=== PATIENT | male | born 1935 | race Caucasian/White ===

== ENCOUNTER 2016-05-07 11:59 | Inpatient (IN) | payer MEDICARE ==
[~2016-05-07] VITALS: Ht 175.3 cm; Wt 68.5 kg
[2016-05-07 12:24] LABS: BASO % 1 % (0-3); EOS % 0 % (0-3); HEMATOCRIT 44.7 % (39.0-53.0); LYMPH # 1.1 x10^3/uL (1.0-4.8); LYMPH % 20 % (24-48); MEAN CORPUSCULAR HEMOGLOBIN 31 pg (25-35); MEAN CORPUSCULAR HGB CONC 34 g/dL (31-37); MEAN CORPUSCULAR VOLUME 91 fL (79-100); MONO % 18 % (0-9); NEUT % 61 % (31-73); PLATELET COUNT 175 x10^3/uL (140-400); RED CELL DISTRIBUTION WIDTH 12.8 % (11.5-14.5); WHITE BLOOD COUNT 5.6 x10^3/uL (4.0-11.0)
--- NOTE | 2016-05-07 12:35 | PHYS DOC ---
Past Medical History Past Medical History: Cancer, Diabetes-Type II, Other Additional Past Medical Histor: urinary retention, emphysema, melanoma and seranoma Past Surgical History: Cancer Surgery, Tonsillectomy Alcohol Use: None Drug Use: None Adult General HPI HPI This is an 80-year-old male who has had multiple falls in the last week. He states on Sunday he fell and hit his head and then on Sunday of this week he also fell and hit his head area and he also states last night he fell forward and hit his head. He denies any current headache. He is currently alert and oriented and answering all my questions. He states he does have history of COPD , diabetes, hypertension but denies any significant cardiac history. He does state over the last week and a half he's had a significant cough with mild shortness of breath. Patient did not come in for evaluation after any of his falls. Currently he denies any pain anywhere. He denies any nausea or vomiting. He states his last bowel movement was 2 days ago. He has history of chronic urinary retention and has a Casey catheter in place. He denies any fever or chills. Review of Systems Review of Systems Constitutional: Denies fever or chills [] Eyes: Denies change in visual acuity, redness, or eye pain [] HENT: Denies nasal congestion or sore throat [] Respiratory: Has cough, has shortness of breath [] Cardiovascular: No additional information not addressed in HPI [] GI: Denies abdominal pain, nausea, vomiting, bloody stools or diarrhea [] : Denies dysuria or hematuria [] Musculoskeletal: Denies back pain or joint pain [] Integument: Denies rash or skin lesions [] Neurologic: Denies headache, focal weakness or sensory changes [] Endocrine: Denies polyuria or polydipsia [] Current Medications Current Medications Current Medications Medications (Trade) Dose Ordered Sig/Neel Start Time Stop Time Status Last Admin Dose Admin Albuterol/ Ipratropium 3 ml 3 ml 1X ONCE 05/07/16 12:45 05/07/16 12:46 DC 05/07/16 12:42 3 ML Methylprednisolone Sodium Succinate (Solu-Medrol 125mg Vial) 125 mg 1X ONCE 05/07/16 13:45 05/07/16 13:46 UNV Sodium Chloride (Iv Sodium Chloride 0.9% 1000ml Bag) 1,000 ml @ 1,000 mls/hr 1X ONCE 05/07/16 13:00 05/07/16 13:59 05/07/16 12:45 1,000 MLS/HR Allergies Allergies Allergies Coded Allergies Type Severity Reaction Last Updated Verified aspirin Allergy Intermediate 05/07/16 Yes Physical Exam Physical Exam Constitutional: Well developed, well nourished, no acute distress, non-toxic appearance. [] HENT: Normocephalic, atraumatic, bilateral external ears normal, oropharynx moist, no oral exudates, nose normal. [] Eyes: PERRLA, EOMI, conjunctiva normal, no discharge. [] Neck: Normal range of motion, no tenderness, supple, no stridor. [] Cardiovascular:Heart rate regular rhythm, no murmur [] Lungs & Thorax: Significant crackles and wheezes heard throughout both lung paredes, no significant respiratory distress [] Abdomen: Bowel sounds normal, soft, no tenderness, no masses, no pulsatile masses. [] Skin: Warm, dry, no erythema, no rash. [] Back: No tenderness, no CVA tenderness. [] Extremities: No tenderness, no cyanosis, no clubbing, ROM intact, no edema. [] Neurologic: Alert and oriented X 3, normal motor function, normal sensory function, no focal deficits noted. [] Psychologic: Affect normal, judgement normal, mood normal. [] Current Patient Data Vital Signs Vital Signs Date Time Temp Pulse Resp B/P Pulse Ox O2 Delivery O2 Flow Rate FiO2 05/07/16 12:42 93 Room Air 05/07/16 12:08 97.9 80 20 182/82 97.9 Lab Values Laboratory Tests Test 05/07/16 12:10 White Blood Count 5.6x10^3/uL (4.0-11.0) Red Blood Count 4.90x10^6/uL (4.30-5.70) Hemoglobin 15.0g/dL (13.0-17.5) Hematocrit 44.7% (39.0-53.0) Mean Corpuscular Volume 91fL (79-100) Mean Corpuscular Hemoglobin 31pg (25-35) Mean Corpuscular Hemoglobin Concent 34g/dL (31-37) Red Cell Distribution Width 12.8% (11.5-14.5) Platelet Count 175x10^3/uL (140-400) Neutrophils (%) (Auto) 61% (31-73) Lymphocytes (%) (Auto) 20% (24-48) L Monocytes (%) (Auto) 18% (0-9) H Eosinophils (%) (Auto) 0% (0-3) Basophils (%) (Auto) 1% (0-3) Neutrophils # (Auto) 3.5x10^3uL (1.8-7.7) Lymphocytes # (Auto) 1.1x10^3/uL (1.0-4.8) Monocytes # (Auto) 1.0x10^3/uL (0.0-1.1) Eosinophils # (Auto) 0.0x10^3/uL (0.0-0.7) Basophils # (Auto) 0.0x10^3/uL (0.0-0.2) Sodium Level 137mmol/L (136-145) Potassium Level 3.4mmol/L (3.5-5.1) L Chloride Level 98mmol/L (98-107) Carbon Dioxide Level 27mmol/L (21-32) Anion Gap 12 (6-14) Blood Urea Nitrogen 16mg/dL (8-26) Creatinine 0.9mg/dL (0.7-1.3) Estimated GFR (Cockcroft-Gault) 80.8 Glucose Level 141mg/dL (70-99) H Calcium Level 9.0mg/dL (8.5-10.1) Troponin I Quantitative < 0.017ng/mL (0.000-0.055) Laboratory Tests 05/07/16 12:10 Laboratory Tests 05/07/16 12:10 EKG EKG EKG as interpreted by ne shows s sinus rhythm with a rate of 73 bpm. There are no obvious ischemic findings on this EKG. Intervals are normal. There is no ectopy. Radiology/Procedures Radiology/Procedures Portable one view of the chest as interpreted by ne does not reveal an acute cardiopulmonary abnormality. CT of the head without contrast demonstrates the following: Indication multiple falls. Trauma to the head. Noncontrast images of the head were obtained and are compared to a study 10/22/2008. The calvarium appears unremarkable. Similar to the previous exam there is extensive opacification of the paranasal sinuses compatible with pansinusitis. Mastoid air cells are normally aerated. There is no subdural or epidural hematoma. The ventricles and sulci are within normal limits given the patient's age. No mass or midline shift is seen. There is no evidence of hemorrhage. An acute intracranial finding is not seen. Course & Med Decision Making Course & Med Decision Making Pertinent Labs and Imaging studies reviewed. (See chart for details) 80-year-old male who's had approximately 3 falls in the last week impacting his head with each fall and will obtain head CT to rule out any acute traumatic bleed. His lung exam reveals that he is having significant crackles and wheezing for which I'll order a DuoNeb treatment. I will obtain full laboratory workup. Patient will ultimately be admitted to the hospital under Dr. Marie for his ongoing weakness and fall risk history. Chest x-ray was unremarkable. Laboratory workup is otherwise unremarkable. I will be admitting him to Dr. Marie for further eval urgent treatment for likely COPD exacerbation and ongoing weakness. CT of his head was negative for any tramatic findings. He was admitted without incident with breathing treatments were ordered. Dragon Disclaimer Dragon Disclaimer This electronic medical record was generated, in whole or in part, using a voice recognition dictation system. Departure Departure Impression: Primary Impression: COPD exacerbation Additional Impression: Weakness Disposition: 09 ADMITTED INPATIENT Admitting Physician: Anish Marie Condition: STABLE Problem Qualifiers ANGEL DWYER DO May 07, 2016 12:35
[2016-05-07 12:44] LABS: CREATININE 0.9 mg/dL (0.7-1.3); GFR 80.8; POTASSIUM 3.4 mmol/L (3.5-5.1)
--- NOTE | 2016-05-07 12:44 | RAD ---
Indication weakness. Protocol study. A single view of the chest was obtained. Comparison is made to an examination 09/28/2010. There are probable background changes of fibrosis. An acute finding is not seen. A significant change when compared to the prior exam is not apparent. Heart and pulmonary vessels are unremarkable. IMPRESSION: No acute finding
[2016-05-07] MEDS ORDERED: IPRATRPIUM/ALBUTEROL 0.5/2.5MG 3 ML NEBU. NEB ONE (12:45)
[2016-05-07] MEDS ORDERED: IV NORMAL SALINE 1000ML BAG 1,000 ML IV ONE (13:00)
--- NOTE | 2016-05-07 13:20 | RAD ---
Indication multiple falls. Trauma to the head. Noncontrast images of the head were obtained and are compared to a study 10/22/2008. The calvarium appears unremarkable. Similar to the previous exam there is extensive opacification of the paranasal sinuses compatible with pansinusitis. Mastoid air cells are normally aerated. There is no subdural or epidural hematoma. The ventricles and sulci are within normal limits given the patient's age. No mass or midline shift is seen. There is no evidence of hemorrhage. An acute intracranial finding is not seen. IMPRESSION: Intracranially no acute findings seen. Pansinusitis PQRS Compliance Statement: One or more of the following individualized dose reduction techniques were utilized for this examination: 1. Automated exposure control 2. Adjustment of the mA and/or kV according to patient size 3. Use of iterative reconstruction technique
[2016-05-07] MEDS ORDERED: ONDANSETRON PF 4 MG/2 ML VIAL. IV PRN (14:00)
[2016-05-07] MEDS ORDERED: ACETAMINOPHEN 325 MG TABLET. PO PRN (14:00)
[2016-05-07] MEDS ORDERED: methylPREDNISolone SOD SUCC PF 125 MG/2 ML VIAL. IV ONE (14:00)
[2016-05-07 15:48] VITALS: BP 133/80
[2016-05-07] MEDS: IPRATRPIUM/ALBUTEROL 0.5/2.5MG 3 ML NEBU. NEB SCH ×2 (15:48→21:44)
[2016-05-07] MEDS ORDERED: SIMV10TA3 PO (17:31)
[2016-05-07] MEDS ORDERED: MULT-246 PO (17:31)
[2016-05-07] MEDS ORDERED: LISI10TA2 PO (17:31)
[2016-05-07] MEDS ORDERED: OMEG1CAP6 PO (17:31)
[2016-05-07] MEDS ORDERED: FLUT100D IH (17:31)
[2016-05-07] MEDS ORDERED: METF500T4 PO (17:31)
[2016-05-07] MEDS ORDERED: IPRA4AER IH (17:31)
[2016-05-07] MEDS ORDERED: FLUT16SP NS (17:31)
[2016-05-07 19:00] VITALS: BP 121/73
[2016-05-07 22:50] VITALS: BP 146/88
[2016-05-08] VITALS (7 sets, daily range): BP systolic 137–180; BP diastolic 69–86
[2016-05-08 04:42] LABS: BASO % 1 % (0-3); EOS % 0 % (0-3); HEMATOCRIT 40.8 % (39.0-53.0); HEMOGLOBIN 13.8 g/dL (13.0-17.5); LYMPH # 0.8 x10^3/uL (1.0-4.8); LYMPH % 16 % (24-48); MEAN CORPUSCULAR HEMOGLOBIN 31 pg (25-35); MEAN CORPUSCULAR HGB CONC 34 g/dL (31-37); MEAN CORPUSCULAR VOLUME 90 fL (79-100); MONO % 16 % (0-9); NEUT % 67 % (31-73); PLATELET COUNT 172 x10^3/uL (140-400); RED BLOOD COUNT 4.53 x10^6/uL (4.30-5.70); RED CELL DISTRIBUTION WIDTH 12.5 % (11.5-14.5); WHITE BLOOD COUNT 4.9 x10^3/uL (4.0-11.0)
[2016-05-08 05:25] LABS: CALCIUM 8.8 mg/dL (8.5-10.1); CREATININE 0.7 mg/dL (0.7-1.3); POTASSIUM 3.5 mmol/L (3.5-5.1)
--- NOTE | 2016-05-08 06:26 | EKG ---
[facility] [address] [place] [address] Test Date: 2016-05-07 Test Time: 12:30:48 Pat Name: MYAH OSBORN Department: Room: 563 Gender: M Beater Boss: : 1935 Requested By: ANGEL DWYER Order Number: [id number] Reading MD: Madison Muse Measurements Intervals [place] Rate: 73 P: 49 NM: 180 QRS: -31 QRSD: 108 T: 43 QT: 370 QTc: 411 Interpretive Statements SINUS RHYTHM ABNORMAL LEFT AXIS DEVIATION LEFT ANTERIOR FASCICULAR BLOCK ABNORMAL ECG RI6.01 No previous ECG available for comparison Electronically Signed On 05-11-2016 21:34:28 [employer] DESIGN by Madison Muse
[2016-05-08] MEDS: IPRATRPIUM/ALBUTEROL 0.5/2.5MG 3 ML NEBU. NEB SCH ×3 (07:22→20:18)
[2016-05-08] MEDS: FLUTICASONE 50MCG/NASAL SPRAY 16GM BOTTLE. NS SCH (09:15)
--- NOTE | 2016-05-08 09:20 | PDOC1 ---
History and Physical Date of Admission Date of Admission DATE: 05/07/16 Identification/Chief Complaint Chief Complaint Falling Source Source: Patient History of Present Illness History of Present Illness Pt states that he fell 2 Sundays ago and hit his head on the patio. He had a cold at that time. He fell again this Sunday in his kitchen and since then had a couple more falls. He says that when he falls he can not remember what is happening, like he passes out, but as soon as he hits the ground he is coherent. Sometimes it occurs when he first stands up, but not all the time. His family tells him that he needs a walker, but he is unsure that this will help as his episodes are more like he is passing out. He says that he feels he has been slowly deteriorating for the past 2 years. He has become more forgetful. He has had a cough; today started coughing up green stuff. Past Medical History Cardiovascular: HTN, Hyperlipidemia Pulmonary: COPD GI: No pertinent hx Hepatobiliary: No pertinent hx Psych: No pertinent hx Musculoskeletal: Osteoarthritis, Other (DDD, Spondylolithesis L5-S1) Rheumatologic: No pertinent hx Infectious disease: No pertinent hx ENT: Other (Nasal polyps) Renal/: Other (Neurogenic bladder) Endocrine: Diabetes Dermatology: No pertinent hx Past Surgical History Past Surgical History Melanoma Removal Family History Family History: Cancer (Lung Cancer- father and sister), Other (Mom- seizure disorder) Social History Smoke: Quit ALCOHOL: none Drugs: None Current Problem List Problem List Problems Medical Problems: (1) COPD exacerbation Status: Acute (2) Weakness Status: Acute Problems: Current Medications Current Medications Current Medications Albuterol/ Ipratropium 3 ml 3 ml 1X ONCE NEB Last administered on 05/07/16 12 :42; Start 05/07/16 at 12:45; Stop 05/07/16 at 12:46; Status DC Sodium Chloride (Iv Sodium Chloride 0.9% 1000ml Bag) 1,000 ml @ 1,000 mls/hr 1X ONCE IV Last administered on 05/07/16 12:45; Start 05/07/16 at 13:00; Stop 05/07/16 at 13:59; Status DC Methylprednisolone Sodium Succinate (Solu-Medrol 125mg Vial) 125 mg 1X ONCE IV Last administered on 05/07/16 14:02; Start 05/07/16 at 14:00; Stop 05/07/16 at 14:01; Status DC Ondansetron HCl (Zofran) 4 mg PRN Q8HRS PRN IV NAUSEA/VOMITING; Start 05/07/16 at 14:00; Stop 05/08/16 at 13:59 Acetaminophen (Tylenol) 650 mg PRN Q4HRS PRN PO FEVER; Start 05/07/16 at 14:00 ; Stop 05/08/16 at 13:59 Albuterol/ Ipratropium (Duoneb) 3 ml RTQID NEB Last administered on 05/08/16t 07:22; Start 05/07/16 at 16:00; Stop 05/08/16 at 15:59 Active Scripts Active Reported Fish Oil 1,000 Mg Capsule ([place]-3 Fatty Acids/Fish Oil) 1 Each Capsule 1 Each PO DAILY Multi-Vitamin Daily (Multivitamin) 1 Each Tablet 1 Each PO Lisinopril 10 Mg Tablet 1 Tab PO DAILY Simvastatin 10 Mg Tablet 1 Tab PO QHS Metformin Hcl 500 Mg Tablet 1 Tab PO BID Flovent 100MCG Diskus (Fluticasone Propionate) 100 Mcg Disk.w.dev 1 Puff IH BID Combivent Respimat Inhal (Ipratropium/Albuterol Sulfate) 4 Gm Aer.w.adap 2 Inh IH QID Fluticasone Propionate Nasal Jarreau (Fluticasone Propionate) 16 Gm Jarreau.susp 2 Jarreau NS DAILY Allergies Allergies: Coded Allergies: aspirin (Verified Allergy, Intermediate, 05/07/16) ROS General: No: Chills, Night Sweats PSYCHOLOGICAL ROS: No: Anxiety, Depression Eyes: No Decreased vision, No Eye Pain HEENT: YES: Nasal congestion, No: Sore Throat ALLERGY AND IMMUNOLOGY: No: Hives, Post Nasal Drip Hematological and Lymphatic: No: Bleeding Problems, Blood Clots Respiratory: YES: Cough, Shortness of breath, Sputum Changes Cardiovascular: No Chest Pain, No Edema Gastrointestinal: No Abdominal Pain, No Constipation, No Diarrhea, No Nausea, No Vomiting Genitourinary: YES Retention, No Dysuria, No Urgency Musculoskeletal: Yes Joint Pain, Yes Muscle Pain Neurological: Yes Impaired Coord/balance, Yes Weakness, No Numbness/Tingling Skin: No Rash, No Skin Lesion Changes Physical Exam General: Alert, Oriented X3, Cooperative, No acute distress, Other (thin) HEENT: Atraumatic, PERRLA, EOMI, Mucous membr. moist/pink Lungs: Clear to auscultation, Normal air movement Heart: RRR, no thrills, no rubs, no gallops, no murmurs Abdomen: Normal bowel sounds, Soft, No tenderness, No hepatosplenomegaly Extremities: No clubbing, No cyanosis, No edema Skin: No rashes, No breakdown, No significant lesion Neuro: Normal speech, Cranial nerves 3-12 NL Psych/Mental Status: Mental status NL, Mood NL Vitals Vitals Vital Signs Date Time Temp Pulse Resp B/P Pulse Ox O2 Delivery O2 Flow Rate FiO2 05/08/16 08:00 Room Air 05/08/16 07:24 95 05/08/16 07:00 98.1 100 18 180/81 98.1 Labs Labs Laboratory Tests Test 05/07/16 12:10 05/07/16 15:58 05/07/16 20:22 05/08/16 04:30 White Blood Count 5.6x10^3/uL (4.0-11.0) 4.9x10^3/uL (4.0-11.0) Red Blood Count 4.90x10^6/uL (4.30-5.70) 4.53x10^6/uL (4.30-5.70) Hemoglobin 15.0g/dL (13.0-17.5) 13.8g/dL (13.0-17.5) Hematocrit 44.7% (39.0-53.0) 40.8% (39.0-53.0) Mean Corpuscular Volume 91fL (79-100) 90fL (79-100) Mean Corpuscular Hemoglobin 31pg (25-35) 31pg (25-35) Mean Corpuscular Hemoglobin Concent 34g/dL (31-37) 34g/dL (31-37) Red Cell Distribution Width 12.8% (11.5-14.5) 12.5% (11.5-14.5) Platelet Count 175x10^3/uL (140-400) 172x10^3/uL (140-400) Neutrophils (%) (Auto) 61% (31-73) 67% (31-73) Lymphocytes (%) (Auto) 20% (24-48) 16% (24-48) Monocytes (%) (Auto) 18% (0-9) 16% (0-9) Eosinophils (%) (Auto) 0% (0-3) 0% (0-3) Basophils (%) (Auto) 1% (0-3) 1% (0-3) Neutrophils # (Auto) 3.5x10^3uL (1.8-7.7) 3.2x10^3uL (1.8-7.7) Lymphocytes # (Auto) 1.1x10^3/uL (1.0-4.8) 0.8x10^3/uL (1.0-4.8) Monocytes # (Auto) 1.0x10^3/uL (0.0-1.1) 0.8x10^3/uL (0.0-1.1) Eosinophils # (Auto) 0.0x10^3/uL (0.0-0.7) 0.0x10^3/uL (0.0-0.7) Basophils # (Auto) 0.0x10^3/uL (0.0-0.2) 0.0x10^3/uL (0.0-0.2) Sodium Level 137mmol/L (136-145) 141mmol/L (136-145) Potassium Level 3.4mmol/L (3.5-5.1) 3.5mmol/L (3.5-5.1) Chloride Level 98mmol/L (98-107) 103mmol/L (98-107) Carbon Dioxide Level 27mmol/L (21-32) 27mmol/L (21-32) Anion Gap 12 (6-14) 11 (6-14) Blood Urea Nitrogen 16mg/dL (8-26) 11mg/dL (8-26) Creatinine 0.9mg/dL (0.7-1.3) 0.7mg/dL (0.7-1.3) Estimated GFR (Cockcroft-Gault) 80.8 108.0 Glucose Level 141mg/dL (70-99) 165mg/dL (70-99) Calcium Level 9.0mg/dL (8.5-10.1) 8.8mg/dL (8.5-10.1) Troponin I Quantitative < 0.017ng/mL (0.000-0.055) Glucose (Fingerstick) 167mg/dL (70-99) 247mg/dL (70-99) Test 05/08/16 07:41 Glucose (Fingerstick) 136mg/dL (70-99) Laboratory Tests Test 05/07/16 12:10 05/07/16 15:58 05/07/16 20:22 05/08/16 04:30 White Blood Count 5.6x10^3/uL (4.0-11.0) 4.9x10^3/uL (4.0-11.0) Red Blood Count 4.90x10^6/uL (4.30-5.70) 4.53x10^6/uL (4.30-5.70) Hemoglobin 15.0g/dL (13.0-17.5) 13.8g/dL (13.0-17.5) Hematocrit 44.7% (39.0-53.0) 40.8% (39.0-53.0) Mean Corpuscular Volume 91fL (79-100) 90fL (79-100) Mean Corpuscular Hemoglobin 31pg (25-35) 31pg (25-35) Mean Corpuscular Hemoglobin Concent 34g/dL (31-37) 34g/dL (31-37) Red Cell Distribution Width 12.8% (11.5-14.5) 12.5% (11.5-14.5) Platelet Count 175x10^3/uL (140-400) 172x10^3/uL (140-400) Neutrophils (%) (Auto) 61% (31-73) 67% (31-73) Lymphocytes (%) (Auto) 20% (24-48) 16% (24-48) Monocytes (%) (Auto) 18% (0-9) 16% (0-9) Eosinophils (%) (Auto) 0% (0-3) 0% (0-3) Basophils (%) (Auto) 1% (0-3) 1% (0-3) Neutrophils # (Auto) 3.5x10^3uL (1.8-7.7) 3.2x10^3uL (1.8-7.7) Lymphocytes # (Auto) 1.1x10^3/uL (1.0-4.8) 0.8x10^3/uL (1.0-4.8) Monocytes # (Auto) 1.0x10^3/uL (0.0-1.1) 0.8x10^3/uL (0.0-1.1) Eosinophils # (Auto) 0.0x10^3/uL (0.0-0.7) 0.0x10^3/uL (0.0-0.7) Basophils # (Auto) 0.0x10^3/uL (0.0-0.2) 0.0x10^3/uL (0.0-0.2) Sodium Level 137mmol/L (136-145) 141mmol/L (136-145) Potassium Level 3.4mmol/L (3.5-5.1) 3.5mmol/L (3.5-5.1) Chloride Level 98mmol/L (98-107) 103mmol/L (98-107) Carbon Dioxide Level 27mmol/L (21-32) 27mmol/L (21-32) Anion Gap 12 (6-14) 11 (6-14) Blood Urea Nitrogen 16mg/dL (8-26) 11mg/dL (8-26) Creatinine 0.9mg/dL (0.7-1.3) 0.7mg/dL (0.7-1.3) Estimated GFR (Cockcroft-Gault) 80.8 108.0 Glucose Level 141mg/dL (70-99) 165mg/dL (70-99) Calcium Level 9.0mg/dL (8.5-10.1) 8.8mg/dL (8.5-10.1) Troponin I Quantitative < 0.017ng/mL (0.000-0.055) Glucose (Fingerstick) 167mg/dL (70-99) 247mg/dL (70-99) Test 05/08/16 07:41 Glucose (Fingerstick) 136mg/dL (70-99) VTE Prophylaxis Ordered VTE Prophylaxis Devices: Yes VTE Pharmacological Prophylaxi: No Assessment/Plan Assessment/Plan Pt is a 80yo CM admitted for recurrent falls and COPD Exacerbation 1)COPD Exacerbation- will treat with antibiotics and low dose steroids. 2)Recurrent falls/syncopal episodes- Cardiology has been consulted. Some of his syncopal episodes sound vasovagal but some sound unprovoked. PT/OT has been consulted 3)HTN- uncontrolled this morning, will resume pt's Lisinopril 40mg 4)HLD- pt continued on Simvastatin 10mg QHS 5)DM2- HbA1C pending. Pt continued on Metformin 500mg BID SONAL WHITE MD May 08, 2016 09:20
[2016-05-08] MEDS: METFORMIN 500 MG TABLET. PO SCH ×2 (09:43→16:42)
[2016-05-08] MEDS: LISINOPRIL 40 MG TABLET. PO SCH (09:43)
[2016-05-08] MEDS: LEVOFLOXACIN 500 MG TABLET PO SCH (09:44)
[2016-05-08] MEDS: SIMVASTATIN 10 MG TABLET PO SCH ×2 (09:44→09:51)
[2016-05-08] MEDS ORDERED: PREDNISONE 10 MG TABLET PO SCH (10:00)
[2016-05-08] MEDS: BUDESONIDE 0.5 MG/2 ML NEBU NEB SCH ×2 (11:15→20:18)
--- NOTE | 2016-05-08 12:50 | PDOC2 ---
CARDIAC CONSULT DATE OF CONSULT Date of Consult DATE: 05/08/16 TIME: 12:16 REASON FOR CONSULT Reason for Consult: syncope REFERRING PHYSICIAN Referring Physician: Dr. Ry Frias SOURCE Source: Chart review, Patient HISTORY OF PRESENT ILLNESS HISTORY OF PRESENT ILLNESS 80 year old male with a history of falls recently. States he" fades away momentarily." Story varies somewhat from provider to provider. Now states all falls occurred 2 weeks ago and he has not fallen any in the last week. Reports falling in the door once and falling in the kitchen. Denies associated dizziness, lightheadedness, diplopia, chest pain, or palpitations. Does complain of dyspnea which has been present since 1998 when he was diagnosed with emphysema after falling on a hill mowing grass, as well as a cough productive of green sputum. 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 Hypokalemic on presentation @ 3.4. Troponin levels not consistent with AMI and no acute changes in EKG. Reason for Visit: ? of syncope PAST MEDICAL HISTORY Cardiovascular: HTN, Hyperlipidemia Pulmonary: COPD (with emphysema) CENTRAL NERVOUS SYSTEM: Other (none) GI: Other (bowel obstruction) Heme/Onc: Cancer (melanoma) Hepatobiliary: No pertinent hx Psych: No pertinent hx Musculoskeletal: Osteoarthritis (with DDD) Rheumatologic: No pertinent hx Infectious disease: No pertinent hx ENT: Allergic Rhinitis, Other (nasal polyps) Renal/: Other (urinary retention with self-catheterization ) Endocrine: Diabetes (type II, poorly controlled) Dermatology: Melanoma PAST SURGICAL HISTORY Past Surgical History: Tonsillectomy, Other (excision of melanoma) FAMILY HISTORY Family History negative for CAD Family History: Cancer SOCIAL HISTORY Smoke: Quit (1980) ALCOHOL: none Drugs: None Lives: with Family CURRENT MEDICATIONS CURRENT MEDICATIONS Current Medications Medications (Trade) Dose Ordered Sig/Neel Route PRN Reason Start Time Stop Time Status Last Admin Dose Admin Albuterol/ Ipratropium 3 ml 3 ml 1X ONCE NEB 05/07/16 12:45 05/07/16 12:46 DC 05/07/16 12:42 Sodium Chloride (Iv Sodium Chloride 0.9% 1000ml Bag) 1,000 ml @ 1,000 mls/hr 1X ONCE IV 05/07/16 13:00 05/07/16 13:59 DC 05/07/16 12:45 Methylprednisolone Sodium Succinate (Solu-Medrol 125mg Vial) 125 mg 1X ONCE IV 05/07/16 14:00 05/07/16 14:01 DC 05/07/16 14:02 Albuterol/ Ipratropium (Duoneb) 3 ml RTQID [facility] 05/07/16 16:00 05/08/16 15:59 05/08/16 11:15 Levofloxacin (Levaquin) 500 mg DAILY06 PO 05/08/16 10:00 05/08/16 09:44 Prednisone (Prednisone) 40 mg DAILY PO 05/08/16 10:00 05/08/16 09:43 Lisinopril (Prinivil) 40 mg DAILY PO 05/08/16 10:00 05/08/16 09:43 Metformin HCl (Glucophage) 500 mg BIDWMEALS PO 05/08/16 10:00 05/08/16 09:43 Simvastatin (Zocor) 10 mg QHS PO 05/08/16 09:15 05/08/16 09:44 Budesonide (Pulmicort) 0.5 mg RTBID [facility] 05/08/16 10:00 05/08/16 11:15 ALLERGIES ALLERGIES: Coded Allergies: aspirin (Verified Allergy, Intermediate, 05/07/16) ROS General: YES: Fatigue, Malaise PSYCHOLOGICAL ROS: No: Anxiety, Behavioral Disorder, Concentration difficultie , Decreased libido, Depression, Disorientation, Hallucinations, Hostility, Irritablity, Memory difficulties, Mood Swings, Obsessive thoughts, Other, Physical abuse, Sexual abuse, Sleep disturbances, Suicidal ideation Eyes: No Blurry vision, No Decreased vision, No Double vision, No Dry eyes, No Excessive tearing, No Eye Pain, No Itchy Eyes, No Loss of vision, No Other, No Photophobia, No Scotomata, No Uses contacts, No Uses glasses HEENT: No: Epistaxis, Heacaches, Hearing change, Nasal congestion, Nasal discharge, Oral lesions, Other, Sinus pain, Sneezing, Snoring, Sore Throat, Tinnitus, Vertigo, Visual Changes, Vocal changes ALLERGY AND IMMUNOLOGY: YES: Other (history of angioedema - etiology unknown), No: Hives, Insect Bite Sensitivity, Itchy/Watery Eyes, Nasal Congestion, Post Nasal Drip, Seasonal Allergies Hematological and Lymphatic: No: Bleeding Problems, Blood Clots, Blood Transfusions, Brusing, Night Sweats, Other, Pallor, Swollen Lymph Nodes ENDOCRINE: No: Breast Changes, Galactorrhea, Hair Pattern Changes, Hot Flashes , Malaise/lethargy, Mood Swings, Other, Palpitations, Polydipsia/polyuria, Skin Changes, Temperature Intolerance, Unexpected Weight Changes Respiratory: YES: Cough, SOB with excertion, Shortness of breath, Sputum Changes Cardiovascular: No Chest Pain, No Edema, No Lt Headedness, No Orthopnea, No Other, No Palpitations, No Paroxysmal Noc. Dyspnea Gastrointestinal: No Abdominal Pain, No Constipation, No Diarrhea, No Hematochezia, No Melena, No Nausea, No Other, No Vomiting Genitourinary: YES Hematuria PHYSICAL EXAM General: Alert, Oriented X3, Cooperative, No acute distress HEENT: Atraumatic, PERRLA Lungs: Other (coarse rhonchii posteriorly; scattered exp wheezing; no crackles) Heart: Regular rate, Normal S1, Normal S2, No murmurs, Other (no carotid bruits ) Abdomen: Normal bowel sounds, Soft, No tenderness Extremities: No edema, Normal pulses Skin: No rashes Neuro: Normal speech Psych/Mental Status: Mental status NL, Mood NL MUSCULOSKELETAL: Osteoarthritic changes both hands VITALS VITALS Vital Signs Date Time Temp Pulse Resp B/P Pulse Ox O2 Delivery O2 Flow Rate FiO2 05/08/16 11:18 Room Air 05/08/16 09:43 100 180/81 05/08/16 07:24 95 05/08/16 07:00 98.1 18 98.1 LABS Lab: Laboratory Tests Test 05/07/16 15:58 05/07/16 20:22 05/08/16 04:30 05/08/16 07:41 Glucose (Fingerstick) 167mg/dL (70-99) 247mg/dL (70-99) 136mg/dL (70-99) White Blood Count 4.9x10^3/uL (4.0-11.0) Red Blood Count 4.53x10^6/uL (4.30-5.70) Hemoglobin 13.8g/dL (13.0-17.5) Hematocrit 40.8% (39.0-53.0) Mean Corpuscular Volume 90fL (79-100) Mean Corpuscular Hemoglobin 31pg (25-35) Mean Corpuscular Hemoglobin Concent 34g/dL (31-37) Red Cell Distribution Width 12.5% (11.5-14.5) Platelet Count 172x10^3/uL (140-400) Neutrophils (%) (Auto) 67% (31-73) Lymphocytes (%) (Auto) 16% (24-48) Monocytes (%) (Auto) 16% (0-9) Eosinophils (%) (Auto) 0% (0-3) Basophils (%) (Auto) 1% (0-3) Neutrophils # (Auto) 3.2x10^3uL (1.8-7.7) Lymphocytes # (Auto) 0.8x10^3/uL (1.0-4.8) Monocytes # (Auto) 0.8x10^3/uL (0.0-1.1) Eosinophils # (Auto) 0.0x10^3/uL (0.0-0.7) Basophils # (Auto) 0.0x10^3/uL (0.0-0.2) Sodium Level 141mmol/L (136-145) Potassium Level 3.5mmol/L (3.5-5.1) Chloride Level 103mmol/L (98-107) Carbon Dioxide Level 27mmol/L (21-32) Anion Gap 11 (6-14) Blood Urea Nitrogen 11mg/dL (8-26) Creatinine 0.7mg/dL (0.7-1.3) Estimated GFR (Cockcroft-Gault) 108.0 Glucose Level 165mg/dL (70-99) Calcium Level 8.8mg/dL (8.5-10.1) Magnesium Level 2.0mg/dL (1.8-2.4) Thyroid Stimulating Hormone (TSH) 0.381uIU/mL (0.358-3.74) Test 05/08/16 10:38 Glucose (Fingerstick) 169mg/dL (70-99) IMAGES IMAGES 05/07/2016: CXR: There are probable background changes of fibrosis. An acute finding is not seen. A significant change when compared to the prior exam is not apparent. Heart and pulmonary vessels are unremarkable. IMPRESSION: No acute finding CT head: The calvarium appears unremarkable. Similar to the previous exam there is extensive opacification of the paranasal sinuses compatible with pansinusitis. Mastoid air cells are normally aerated. There is no subdural or epidural hematoma. The ventricles and sulci are within normal limits given the patient's age. No mass or midline shift is seen. There is no evidence of hemorrhage. An acute intracranial finding is not seen. IMPRESSION: Intracranially no acute findings seen. Pansinusitis EKG EKG no acute changes ASSESSMENT/PLAN ASSESSMENT/PLAN 1. suspected syncope no acute changes in EKG and troponin levels not consistent with AMI place on telemetry to evaluate for dysrhythmias & consider event monitor @ discharge if further evaluation needed check orthostatics & TSH strict I & O echo to assess for valvular heart disease and evaluate LV function 2. AECOPD per primary service 3. HTN ACEI resumed earlier today avoid BB with COPD and until it is determined he does not have have underlying bradycardia 4. HLD check FLP 5. DM, II, hyperglycemia per primary service 6. urinary retention self catheterization 7. melanoma history 8. hypokalemia improved Problems: JUSTIN BARGER APRN May 08, 2016 12:50
--- NOTE | 2016-05-08 15:21 | CARD ---
APPROVED REPORT EXAM: Two-dimensional and M-mode echocardiogram with Doppler and color Doppler. Other Information Quality : GoodHR: 114bpm Rhythm : Tachycardia INDICATION Pericardial Effusion Hypertension/HCVD Falls 2D DIMENSIONS Left Atrium(2D)3.7 (1.6-4.0cm)IVSd1.0 (0.7-1.1cm) Aortic Root(2D)3.2 (2.0-3.7cm)LVDd4.4 (3.9-5.9cm) LVOT Diameter2.3 (1.8-2.4cm)PWd0.9 (0.7-1.1cm) LVDs2.6 (2.5-4.0cm)FS (%) 37.6 % SV54.9 mlLVEF(%)68.1 (>50%) Aortic Valve AoV Peak Kentrell.151.6cm/sAoV VTI26.8cm AO Peak GR.9.2mmHgLVOT VTI 23.24cm AO Mean GR.5mmHg Mitral Valve MV E Peak Gr.14mmHgMV E Mean Gr.6mmHg TDI Lateral E' P. V11.05cm/sMedial E' P. V7.20cm/s LEFT VENTRICLE The left ventricle is normal size. There is normal left ventricular wall thickness. The left ventricu lar systolic function is normal and the ejection fraction is within normal range. The Ejection Fracti on is 60-65%. There is normal LV segmental wall motion. Transmitral Doppler flow pattern is Grade I-a bnormal relaxation pattern. RIGHT VENTRICLE The right ventricle is normal size. There is normal right ventricular wall thickness. The right ventr icular systolic function is normal. ATRIA The left atrium size is normal. The right atrium size is normal. The interatrial septum is intact wit h no evidence for an atrial septal defect or patent foramen ovale as noted on 2-D or Doppler imaging. AORTIC VALVE The aortic valve is mildly sclerotic. Doppler and Color Flow revealed no significant aortic regurgita tion. There is no significant aortic valvular stenosis. MITRAL VALVE Mitral annular calcification is mild. The mitral valve leaflets are thickened. There is no evidence o f mitral valve prolapse. There is no mitral valve stenosis. Doppler and Color Flow revealed no mitral valve regurgitation noted. TRICUSPID VALVE The tricuspid valve is normal in structure and function. Doppler and Color Flow revealed trace tricus pid valve regurgitation. PULMONIC VALVE The pulmonic valve is not well visualized. Doppler and Color Flow revealed no pulmonic valvular regur gitation. GREAT VESSELS The aortic root is normal in size. The ascending aorta is normal in size. The pulmonary artery is nor mal. The IVC is normal in size and collapses >50% with inspiration. PERICARDIAL EFFUSION There is no evidence of significant pericardial effusion. Critical Notification Critical Value: No <Conclusion> The left ventricle is normal size. The left ventricular systolic function is normal and the ejection fraction is within normal range. The Ejection Fraction is 60-65%. There is normal left ventricular wall thickness. There is no significant aortic valvular stenosis. Doppler and Color Flow revealed no significant aortic regurgitation. Doppler and Color Flow revealed no mitral valve regurgitation noted. Doppler and Color Flow revealed trace tricuspid valve regurgitation.
[2016-05-08] MEDS ORDERED: METFORMIN 500 MG TABLET. PO SCH (21:00)
[2016-05-08] MEDS ORDERED: NON FORMULARY ITEM (Fluticasone Propionate (Flovent 100MCG Diskus) 1 PUFF) IH SCH (21:00)
[2016-05-08] MEDS ORDERED: SIMVASTATIN 10 MG TABLET PO SCH (21:00)
[2016-05-09 03:40] VITALS: BP 151/80
[2016-05-09 05:57] LABS: CHOLESTEROL/HDL RATIO 2.5
[2016-05-09] MEDS: LEVOFLOXACIN 500 MG TABLET PO SCH (06:09)
[2016-05-09] MEDS: BUDESONIDE 0.5 MG/2 ML NEBU NEB SCH ×2 (06:55→18:10)
[2016-05-09] MEDS: IPRATRPIUM/ALBUTEROL 0.5/2.5MG 3 ML NEBU. NEB SCH ×4 (06:55→18:10)
[2016-05-09 07:15] VITALS: BP 104/68
--- NOTE | 2016-05-09 07:57 | PDOC ---
SUBJECTIVE Subjective Pt states that he feels more short of air today than he did yesterday. Cough is keeping him up at night. Still having productive cough since admission; admits that he may be in the beginning stages of dementia. OBJECTIVE Vital Signs Vital Signs Date Time Temp Pulse Resp B/P Pulse Ox O2 Delivery O2 Flow Rate FiO2 05/09/16 06:56 97 Room Air 05/09/16 03:40 97.7 80 20 151/80 92 Room Air 97.7 05/08/16 23:39 97.5 96 20 151/69 92 Room Air 97.5 05/08/16 20:25 96 Room Air 05/08/16 20:22 96 Room Air 05/08/16 20:00 Room Air 05/08/16 19:00 97.6 97 18 169/76 95 Room Air 97.6 05/08/16 16:55 Room Air 05/08/16 15:09 103 18 143/78 93 Room Air 05/08/16 15:07 107 18 137/82 93 Room Air 05/08/16 15:06 98.1 108 18 158/86 93 Room Air 98.1 05/08/16 11:18 Room Air 05/08/16 11:17 Room Air 05/08/16 11:00 98.1 78 18 145/75 94 Room Air 98.1 05/08/16 09:43 100 180/81 05/08/16 08:00 Room Air I & O Intake and Output 05/09/16 07:00 Intake Total 2800 ml Output Total 2615 ml Balance 185 ml Intake Oral 2800 ml Output Urine Total 2615 ml # Voids 1 # Bowel Movements 1 PHYSICAL EXAM Physical Exam General: Alert, Oriented X3, Cooperative, No acute distress, Other (thin) HEENT: Atraumatic, PERRLA, EOMI, Mucous membr. moist/pink Lungs: Clear to auscultation, Normal air movement Heart: RRR, no thrills, no rubs, no gallops, no murmurs Abdomen: Normal bowel sounds, Soft, No tenderness, No hepatosplenomegaly Extremities: No clubbing, No cyanosis, No edema Skin: No rashes, No breakdown, No significant lesion Neuro: Normal speech, Cranial nerves 3-12 NL Psych/Mental Status: Mental status NL, Mood NL ASSESSMENT/PLAN Assessment/Plan Pt is a 80yo CM admitted for recurrent falls and COPD Exacerbation 1)COPD Exacerbation- will treat with antibiotics and low dose steroids. 2)Recurrent falls/syncopal episodes- Cardiology has been consulted. Some of his syncopal episodes sound vasovagal but some sound unprovoked. PT/OT has been consulted, recommending discharge to home... possibly SNU in the future if falls continue. ECHO WNL 3)HTN- moderately controlled this morning, pt on Lisinopril 40mg 4)HLD- pt continued on Simvastatin 10mg QHS 5)DM2- well controlled with HbA1C of 6.5 this admission. Pt continued on Metformin 500mg BID; BS currently elevated 2/2 steroids, will start SSI. 6)CHF- diastolic, compensated. 7)Urinary Retention- pt self catheterizes 8)Dementia Problems: COMMENT Lab Laboratory Tests Test 05/08/16 10:38 05/08/16 16:30 05/08/16 21:33 05/09/16 03:53 Glucose (Fingerstick) 169mg/dL (70-99) 162mg/dL (70-99) 211mg/dL (70-99) Triglycerides Level 48mg/dL (0-150) Cholesterol Level 144mg/dL (0-200) LDL Cholesterol, Calculated 76mg/dL (0-100) VLDL Cholesterol, Calculated 10mg/dL (0-40) HDL Cholesterol 58mg/dL (40-60) Cholesterol/HDL Ratio 2.5 SONAL WHITE MD May 09, 2016 07:57
[2016-05-09] MEDS: INSULIN ASPART 300 UNITS/3 ML INSULN.PEN SQ SCH ×3 (08:00→17:00)
[2016-05-09] MEDS ORDERED: DEXTROSE 50% 25 GM / 50ML DISP.SYRIN. IV PRN (08:00)
[2016-05-09] MEDS ORDERED: LISINOPRIL 10 MG TABLET PO SCH (09:00)
[2016-05-09] MEDS ORDERED: FLUTICASONE 50MCG/NASAL SPRAY 16GM BOTTLE. NS SCH (09:00)
[2016-05-09] MEDS: FLUTICASONE 50MCG/NASAL SPRAY 16GM BOTTLE. NS SCH (09:00)
[2016-05-09] MEDS: LISINOPRIL 40 MG TABLET. PO SCH (09:23)
[2016-05-09] MEDS: PREDNISONE 20 MG TABLET PO SCH (09:23)
[2016-05-09] MEDS: METFORMIN 500 MG TABLET. PO SCH ×2 (09:24→17:42)
[2016-05-09 11:00] VITALS: BP 134/76
--- NOTE | 2016-05-09 11:15 | PDOC ---
CARDIO Progress Notes Date and Time Date of Service 05/09/2016 Time of Evaluation 1110 Subjective Subjective: No Chest Pain, No Palpitations, No Dizziness, Other (dyspnea and cough last night; no further syncope) Vitals Vitals Vital Signs Date Time Temp Pulse Resp B/P Pulse Ox O2 Delivery O2 Flow Rate FiO2 05/09/16 10:46 Room Air 05/09/16 09:23 81 104/68 05/09/16 07:15 98.6 18 95 98.6 Weight Weight [ ] Input and Output Intake and Output Intake and Output 05/09/16 07:00 Intake Total 2800 ml Output Total 2615 ml Balance 185 ml Intake Oral 2800 ml Output Urine Total 2615 ml # Voids 1 # Bowel Movements 1 Laboratory Labs Laboratory Tests Test 05/08/16 16:30 05/08/16 21:33 05/09/16 03:53 Glucose (Fingerstick) 162mg/dL (70-99) 211mg/dL (70-99) Triglycerides Level 48mg/dL (0-150) Cholesterol Level 144mg/dL (0-200) LDL Cholesterol, Calculated 76mg/dL (0-100) VLDL Cholesterol, Calculated 10mg/dL (0-40) HDL Cholesterol 58mg/dL (40-60) Cholesterol/HDL Ratio 2.5 Physical Exam HEENT: Neck Supple W Full Motion Chest: Symmetric LUNGS: Other (exp wheezing posteriorly) Heart: RRR, no thrills, no rubs, no gallops, no murmurs Abdomen: Soft N/T Extremities: No Edema Neurology: alert, follow commands Diagnostic Tests Echocardiogram: Normal LVEF (60-65%), Normal Valves, No pericardial Effusion Assessment Assessment 1. suspected syncope echo with preserved LV function and no significant valvular disease not orthostatic TSH normal no niya or atrial dysrhythmias on tele; intermittently tachycardic and suspect related to COPD ? deconditioning - reports sitting in a chair for the last 2 years with minimal activity continue tele - likely event monitor at discharge ? SNF for PT/OT 2. AECOPD per primary service 3. HTN ACEI started 05/08 consider addition of amlodipine or felodipine for improved control would avoid BB given COPD 4. HLD LDLs = 76 on statin therapy no changes recommended JUSTIN BARGER APRN May 09, 2016 11:15
[2016-05-09 15:18] VITALS: BP 154/77
[2016-05-09] MEDS ORDERED: MONT10TA9 PO (17:43)
[2016-05-09] MEDS: SIMVASTATIN 10 MG TABLET PO SCH (20:30)
[2016-05-09 20:51] VITALS: BP 146/78
[2016-05-09] MEDS ORDERED: MONTELUKAST SODIUM 10 MG TABLET. PO SCH (21:00)
[2016-05-09 23:00] VITALS: BP 126/79
[2016-05-10 03:00] VITALS: BP 135/74
[2016-05-10] MEDS: IPRATRPIUM/ALBUTEROL 0.5/2.5MG 3 ML NEBU. NEB SCH ×3 (07:18→15:24)
[2016-05-10] MEDS: BUDESONIDE 0.5 MG/2 ML NEBU NEB SCH (07:19)
[2016-05-10 07:20] VITALS: BP 149/78
[2016-05-10] MEDS: LEVOFLOXACIN 500 MG TABLET PO SCH (07:36)
[2016-05-10] MEDS: INSULIN ASPART 300 UNITS/3 ML INSULN.PEN SQ SCH ×2 (08:00→12:00)
[2016-05-10] MEDS: FLUTICASONE 50MCG/NASAL SPRAY 16GM BOTTLE. NS SCH (08:19)
[2016-05-10] MEDS: METFORMIN 500 MG TABLET. PO SCH (08:19)
[2016-05-10] MEDS: PREDNISONE 20 MG TABLET PO SCH (08:19)
[2016-05-10] MEDS: LISINOPRIL 40 MG TABLET. PO SCH (08:20)
[2016-05-10 10:49] VITALS: BP 147/82
--- NOTE | 2016-05-10 12:10 | PDOC ---
CARDIO Progress Notes Date and Time Date of Service 05/10/2016 Time of Evaluation 1207 Subjective Subjective: No Chest Pain, No Palpitations, No Dizziness, Other (dyspnea improved; feeling better) Vitals Vitals Vital Signs Date Time Temp Pulse Resp B/P Pulse Ox O2 Delivery O2 Flow Rate FiO2 05/10/16 11:13 Room Air 05/10/16 10:49 98.0 75 18 147/82 92 98.0 Weight Weight [ ] Input and Output Intake and Output Intake and Output 05/10/16 07:00 Intake Total 2720 ml Output Total 3200 ml Balance -480 ml Intake Oral 2720 ml Output Urine Total 3200 ml # Voids 1 Laboratory Labs Laboratory Tests Test 05/09/16 16:52 05/09/16 21:19 05/10/16 07:26 05/10/16 11:42 Glucose (Fingerstick) 218mg/dL (70-99) 244mg/dL (70-99) 129mg/dL (70-99) 170mg/dL (70-99) Physical Exam HEENT: Neck Supple W Full Motion Chest: Symmetric LUNGS: Other (exp wheezing posteriorly) Heart: S1S2, RRR, no thrills, no rubs, no gallops, no murmurs, other (tele: SR/ ST) Abdomen: Soft N/T Extremities: No Edema Neurology: alert, follow commands Diagnostic Tests Echocardiogram: Normal LVEF (60-65%), Normal Valves, No pericardial Effusion Assessment Assessment 1. suspected syncope echo with preserved LV function and no significant valvular disease no further syncope no dysrhythmias on tele - mild tachycardia likely due to AECOPD will schedule for event monitor/SEEQ and then follow up in office 2. AECOPD improving symptoms per primary service 3. HTN ACEI started 05/08 mildly elevated intermittently consider addition of amlodipine or felodipine for improved control would avoid BB given COPD/wheezing actively 4. HLD LDLs = 76 on statin therapy no changes recommended JUSTIN BARGER APRN May 10, 2016 12:10
[2016-05-10] MEDS ORDERED: LISI40TA PO (12:17)
[2016-05-10] MEDS ORDERED: PRED20TA PO (12:17)
[2016-05-10] MEDS ORDERED: LEVO500T38 PO (12:17)
--- NOTE | 2016-05-10 12:26 | PDOC3 ---
Discharge Summary* Date of Admission: May 07, 2016 Date of Discharge: May 10, 2016 Admitting Diagnosis Problems Medical Problems: (1) COPD exacerbation Status: Acute (2) Syncope Status: Acute (3) Weakness Status: Acute Final Diagnosis Recurrent falls, syncopal episodes, COPD Exacerbation, HTN, HLD, DM2, CHF- diastolic,compensated, Urinary retention chronic-pt self caths, Dementia CONSULTS Cardiology Procedures CXR- no acute processes. Possible fibrosis CT Head- pansinusitis ECHO- LVEF 60-65%, Grade 1 Diastolic Dysfunction Brief Hospital Course DISCHARGE PHYSICAL EXAM General: Alert, Oriented X3, Cooperative, No acute distress, Other (thin) HEENT: Atraumatic, PERRLA, EOMI, Mucous membr. moist/pink Lungs: Clear to auscultation, Normal air movement Heart: RRR, no thrills, no rubs, no gallops, no murmurs Abdomen: Normal bowel sounds, Soft, No tenderness, No hepatosplenomegaly Extremities: No clubbing, No cyanosis, No edema Skin: No rashes, No breakdown, No significant lesion Neuro: Normal speech, Cranial nerves 3-12 NL Psych/Mental Status: Mental status NL, Mood NL Pt is a 80yo CM admitted for recurrent falls and COPD Exacerbation 1)COPD Exacerbation- treated with Levaquin 500mg qday and Prednisone. Pt improving 2)Recurrent falls/syncopal episodes- Cardiology was following, no cardiac events during hospitalization. Pt will be discharged outpatient cardiac monitoring. Some of his syncopal episodes sound vasovagal; walker ordered and discussed taking his time to stand and make sure his head is clear before starting to walk. Home PT/OT. but some sound unprovoked. ECHO WNL 3)HTN- moderately controlled, pt continued on Lisinopril 40mg 4)HLD- pt continued on Simvastatin 10mg QHS 5)DM2- well controlled with HbA1C of 6.5 this admission. Pt continued on Metformin 500mg BID; BS's elevated 2/2 steroids, was receiving some SSI 6)CHF- diastolic, compensated. 7)Urinary Retention- pt self catheterizes 8)Dementia Disposition/Orders: D/C to Home w/ HH CONDITION AT DISCHARGE: Improved, Stable Diet: 2 gr sodium, Consistent Carbohydrate Scheduled Fluticasone Propionate (Fluticasone Propionate Nasal [place]) 2 SPRAY NS DAILY ( Reported) Fluticasone Propionate (Flovent 100MCG Diskus) 1 PUFF IH BID (Reported) Ipratropium/Albuterol Sulfate (Combivent Respimat Inhal) 2 INH IH QID (Reported ) Levofloxacin (Levaquin) 500 MG PO DAILY06 Lisinopril (Lisinopril) 40 MG PO DAILY Metformin Hcl (Metformin Hcl) 1 TAB PO BID (Reported) Montelukast Sodium (Montelukast Sodium Tablet) 10 MG PO HS (Reported) [place]-3 Fatty Acids/Fish Oil (Fish Oil 1,000 Mg Capsule) 1 EACH PO DAILY ( Reported) Prednisone (Prednisone) 60 MG PO DAILY Simvastatin (Simvastatin) 1 TAB PO QHS (Reported) Miscellaneous Medications Multivitamin (Multi-Vitamin Daily) 1 EACH PO (Reported) Discontinued Medications Lisinopril (Lisinopril) 1 TAB PO DAILY (Reported) PCP Follow up with Dr. Marie in the next 7-10 days Time Spent Total time spent with patient [] minutes for coordination of care, counseling, and education. SONAL WHITE MD May 10, 2016 12:26
[2016-05-10 14:53] VITALS: BP 143/89
== END 2016-05-10 16:50 | disposition home health service (06) | DRG 191 ==
LOC: ER 11:59 → 5 SOUTH 13:42
PROVIDERS: ADMIT Family Medicine; ATTEND Family Medicine
DX: J44.1 Chronic obstructive pulmonary disease with (acute) exacerbation (principal); I50.30 Unspecified diastolic (congestive) heart failure; R55 Syncope and collapse; E78.5 Hyperlipidemia, unspecified; E87.6 Hypokalemia; F03.90 Unspecified dementia, unspecified severity, without behavioral disturbance, psychotic disturbance, mood disturbance, and anxiety; R29.6 Repeated falls; R33.9 Retention of urine, unspecified; E11.65 Type 2 diabetes mellitus with hyperglycemia; I11.0 Hypertensive heart disease with heart failure; J32.4 Chronic pansinusitis; J30.9 Allergic rhinitis, unspecified; M19.90 Unspecified osteoarthritis, unspecified site; T38.0X5A Adverse effect of glucocorticoids and synthetic analogues, initial encounter; Z80.1 Family history of malignant neoplasm of trachea, bronchus and lung; Z82.0 Family history of epilepsy and other diseases of the nervous system; Z91.81 History of falling; Z85.820 Personal history of malignant melanoma of skin; Z88.6 Allergy status to analgesic agent
CPT/HCPCS: 36415; 70450; 71010; 80048; 80061; 82947; 83036; 83735; 84443; 84484; 85027; 93005; 93306; 94250; 94640; 94760; 96361; 96374; J1815; J2930; J7030; J7512; J7620; 97110; 97116; 97530; 99285-25

== ENCOUNTER 2019-12-04 18:18 | Inpatient (IN) | payer MEDICARE ==
[~2019-12-04] VITALS: Ht 175.3 cm; Wt 68.5 kg
[~2019-12-04 18:18] MED LIST: FLUT100D IH; FLUT16SP NS; IPRA4AER IH; LEVO500T59 PO; LISI-130 PO; LISI10TA2 PO; METF500T16 PO; MONT10TA49 PO; MULT-246 PO; OMEG1CAP6 PO; PRED20TA PO; SIMV10TA15 PO
[2019-12-04] MEDS ORDERED: LIDOCAINE 2% JELLY 6ML IN APPLICATOR. ONE (18:38)
--- NOTE | 2019-12-04 18:44 | PHYS DOC ---
Past Medical History Past Medical History: Cancer, Diabetes-Type II, Other Additional Past Medical Histor: urinary retention, emphysema, melanoma and seranoma Past Surgical History: Cancer Surgery, Tonsillectomy Smoking Status: Former Smoker Alcohol Use: None Drug Use: None General Adult EDM: Chief Complaint: URINARY RETENTION HPI: HPI: Patient is a 84 year old male who arrives via EMS with a chief complaint of unable to cath for urine since 2:00 in the morning. Patient also generalized weakness and a fever for EMS. Patient complains of lower abdominal pain. Patient has been feeling weak over the last several days and had a fall last where he hit his head has bilateral hip tenderness as well. Patient denies any shortness of breath. Pain is worse with palpation and would be r elieved if he was able to urinate. Pain is nonradiating. Patient has a chronic COPD cough that is unchanged Review of Systems: Review of Systems: Constitutional: Complains of fever Eyes: Denies change in visual acuity. [] HENT: Denies nasal congestion or sore throat. [] Respiratory: Denies shortness of breath but has a mild chronic cough Cardiovascular: Denies chest pain or edema. [] GI: Complains of abdominal pain but no nausea, vomiting, bloody stools or diarrhea. [] : Denies dysuria. [] Musculoskeletal: Complains of bilateral hip soreness Integument: Denies rash. [] Neurologic: Denies headache, focal weakness or sensory changes. [] Complains of generalized weakness Endocrine: Denies polyuria or polydipsia. [] Lymphatic: Denies swollen glands. [] Psychiatric: Denies depression or anxiety. [] Heart Score: Risk Factors: Risk Factors: DM, Current or recent (<one month) smoker, HTN, HLP, family history of CAD, obesity. Risk Scores: Score 0 - 3: 2.5% MACE over next 6 weeks - Discharge Home Score 4 - 6: 20.3% MACE over next 6 weeks - Admit for Clinical Observation Score 7 - 10: 72.7% MACE over next 6 weeks - Early Invasive Strategies Current Medications: Current Medications Medications (Trade) Dose Ordered Sig/Neel Start Time Stop Time Status Last Admin Dose Admin Ceftriaxone Sodium (Rocephin) 1 gm 1X ONCE 12/04/19 18:45 12/04/19 18:46 Lidocaine HCl (Glydo (Lidocaine) Jelly) 6 lupe [employer]-MED ONCE 12/04/19 18:38 12/04/19 18:38 DC Sodium Chloride 1,000 ml @ 1,000 mls/hr 1X ONCE 12/04/19 18:45 12/04/19 19:44 Allergies: Allergies: Allergies Coded Allergies Type Severity Reaction Last Updated Verified aspirin Allergy Intermediate 05/07/16 Yes Physical Exam: PE: Constitutional: Frail, generally weak, mild distress HENT: Normocephalic, atraumatic, bilateral external ears normal, no trismus, no se normal. [] Eyes: PERRLA, EOMI, conjunctiva normal, no discharge. [] Neck: Normal range of motion, no tenderness, supple, no stridor. [] Cardiovascular tachycardic, peripheral pulse intact, cap refill brisk Lungs & Thorax: Bilateral breath sounds clear, no respiratory distress Abdomen: Abdomen soft with a distended bladder that is tender no guarding or rebound no pulsatile masses Skin: Warm, dry, no erythema, no rash. [] Back: No tenderness, no CVA tenderness. [] Extremities: Mild discomfort of bilateral hips Neurologic: Alert and oriented X 3, normal motor function, normal sensory function, no focal deficits noted. [] Generalized weakness Psychologic: Affect normal, judgement normal, mood normal. [] Current Patient Data: Labs: Laboratory Tests Test 12/04/19 19:05 12/04/19 19:26 12/04/19 19:30 Urine Collection Type U cath Urine Color Yellow Urine Clarity Cloudy Urine pH 8.0 Urine Specific [place] 1.010 Urine Protein 100 mg/dL Urine Glucose (UA) Negative mg/dL Urine Ketones (Stick) 15 mg/dL Urine Blood Large Urine Nitrite Negative Urine Bilirubin Negative Urine Urobilinogen Dipstick 1.0 mg/dL Urine Leukocyte Esterase Large Urine RBC Tntc /HPF Urine WBC Tntc /HPF Urine Squamous Epithelial Cells Few /LPF Urine Amorphous Sediment Present /HPF Urine Bacteria Few /HPF Lactic Acid Level 1.5 mmol/L White Blood Count 9.9 x10^3/uL Red Blood Count 4.79 x10^6/uL Hemoglobin 15.3 g/dL Hematocrit 43.8 % Mean Corpuscular Volume 91 fL Mean Corpuscular Hemoglobin 32 pg Mean Corpuscular Hemoglobin Concent 35 g/dL Red Cell Distribution Width 12.5 % Platelet Count 203 x10^3/uL Neutrophils (%) (Auto) 87 % Lymphocytes (%) (Auto) 3 % Monocytes (%) (Auto) 9 % Eosinophils (%) (Auto) 0 % Basophils (%) (Auto) 0 % Neutrophils # (Auto) 8.6 x10^3/uL Lymphocytes # (Auto) 0.3 x10^3/uL Monocytes # (Auto) 0.9 x10^3/uL Eosinophils # (Auto) 0.0 x10^3/uL Basophils # (Auto) 0.0 x10^3/uL Segmented Neutrophils % 77 % Band Neutrophils % 10 % Lymphocytes % 3 % Monocytes % 10 % Platelet Estimate Adequate Prothrombin Time 14.1 SEC Prothromb Time International Ratio 1.1 Activated Partial Thromboplast Time 30 SEC Sodium Level 135 mmol/L Potassium Level 4.2 mmol/L Chloride Level 98 mmol/L Carbon Dioxide Level 27 mmol/L Anion Gap 10 Blood Urea Nitrogen 12 mg/dL Creatinine 0.8 mg/dL Estimated GFR (Cockcroft-Gault) 91.7 BUN/Creatinine Ratio 15 Glucose Level 142 mg/dL Calcium Level 9.1 mg/dL Total Bilirubin 0.7 mg/dL Aspartate Amino Transf (AST/SGOT) 23 U/L Alanine Aminotransferase (ALT/SGPT) 22 U/L Alkaline Phosphatase 121 U/L Total Protein 7.4 g/dL Albumin 3.6 g/dL Albumin/Globulin Ratio 0.9 Lipase 68 U/L Procalcitonin < 0.10 ng/mL Current Medications Medications (Trade) Dose Ordered Sig/Neel Route PRN Reason Start Time Stop Time Status Last Admin Dose Admin Sodium Chloride 1,000 ml @ 1,000 mls/hr 1X ONCE IV 12/04/19 18:45 12/04/19 19:44 DC 12/04/19 19:37 Lidocaine HCl (Glydo (Lidocaine) Jelly) 6 lupe [employer]-MED ONCE .ROUTE 12/04/19 18:38 12/04/19 18:38 DC Ceftriaxone Sodium (Rocephin) 1 gm 1X ONCE IVP 12/04/19 18:45 12/04/19 18:46 DC 12/04/19 19:38 Ondansetron HCl (Zofran) 4 mg PRN Q8HRS PRN IV NAUSEA/VOMITING 12/04/19 20:15 12/05/19 20:14 Ondansetron HCl (Zofran) 4 mg PRN Q8HRS PRN IV NAUSEA/VOMITING 12/04/19 20:15 12/05/19 20:14 Vital Signs: Vital Signs Date Time Temp Pulse Resp B/P (MAP) Pulse Ox O2 Delivery O2 Flow Rate FiO2 12/04/19 18:20 98.3 117 24 170/79 (109) 96 Room Air 98.3 EKG: EKG: EKG interpreted by me sinus tachycardia with a rate of 113 left anterior hemiblock left axis deviation nonspecific ST changes normal intervals [] Radiology/Procedures: Radiology/Procedures: [][facility] [address] [place] [address] IMAGING REPORT Signed PATIENT: MYAH OSBORN ACCOUNT: [id number] : 1935 LOCATION: ER AGE: 84 SEX: M EXAM STATUS: REG ER ORD. PHYSICIAN: ANGEL STEPHENSON MD REASON: fall PROCEDURE: PELVIS EXAM: AP pelvis DATE: 12/04/2019 7:04 PM INDICATION: Reason: fall / Spl. Instructions: / History: COMPARISON: No Prior FINDINGS: Degenerative changes of the spine, hip joints and SI joints. Marked osteopenia limits evaluation for acute fracture. Within these constraints no acute fracture or dislocation. IMPRESSION: Within the constraints of osteopenia, no evidence for acute fracture or dislocation. If there is persistent clinical concern for fracture, given degree of osteopenia, MRI is recommended. Electronically signed by: Juan Alvarez MD (12/04/2019 7:23 PM) [facility] DICTATED and SIGNED BY: JUAN ALVAREZ MD DATE: 12/04/191922 [facility] [address] [place] [address] IMAGING REPORT Signed PATIENT: MYAH OSBORN ACCOUNT: [id number] : 1935 LOCATION: ER AGE: 84 SEX: M EXAM STATUS: REG ER ORD. PHYSICIAN: ANGEL STEPHENSON MD REASON: fever PROCEDURE: PORTABLE CHEST 1V EXAM: AP View of the chest DATE: 12/04/2019 7:04 PM INDICATION: Fever COMPARISON: 05/07/2016 FINDINGS: The heart is not enlarged. Aorta is mildly tortuous. Linear and patchy opacities bilaterally particularly in the peripheral lungs, increased compared to 917. No pleural effusion or pneumothorax. IMPRESSION: Peripheral opacities with interstitial prominence may be seen with infectious/inflammatory process although background of chronic interstitial lung disease is suspected. Electronically signed by: Juan Alvarez MD (12/04/2019 7:23 PM) [facility] DICTATED and SIGNED BY: JUAN ALVAREZ MD DATE: 12/04/191922 [facility] [address] [place] [address] IMAGING REPORT Signed PATIENT: MYAH OSBORN ACCOUNT: [id number] : 1935 LOCATION: ER AGE: 84 SEX: M EXAM STATUS: REG ER ORD. PHYSICIAN: ANGEL STEPHENSON MD REASON: fall, head injury PROCEDURE: CT HEAD WO CONTRAST EXAM: CT HEAD WITHOUT CONTRAST. HISTORY: Fall, head injury. TECHNIQUE: Computed tomography of the head was performed without intravenous contrast. One or more of the following individualized dose reduction techniques were utilized for this examination: 1. Automated exposure control. 2. Adjustment of the mA and/or kV according to patient size. 3. Use of iterative reconstruction technique. COMPARISON: None. FINDINGS: There is no intracranial hemorrhage. Dimas-white differentiation is preserved. The ventricles are normal in size and position for patient age. The left maxillary sinus, frontal sinus, sphenoid sinus and ethmoid air cells are diffusely opacified. The right maxillary sinus is mostly opacified. There are changes of bilateral cataract surgery. The temporal bones are unremarkable. The calvarium reveals no suspicious lesions. There are atherosclerotic calcifications of the internal carotid and vertebral arteries. IMPRESSION: 1. No acute intracranial findings. 2. Diffuse opacification of the paranasal sinuses is chronic but has progressed since 2017. Electronically signed by: Khris Sutton MD (12/04/2019 9:24 PM) [facility] DICTATED and SIGNED BY: KRUPA SUTTON MD DATE: 12/04/192123 Course & Med Decision Making: Course & Med Decision Making Pertinent Labs and Imaging studies reviewed. (See chart for details) [] 84-year-old male presents with abdominal pain due to urinary retention as well as a low-grade fever. Patient was able to have a Casey catheter placed here with large amount of urine back. Patient has a urinary infection. Patient will get cultured and received broad-spectrum antibiotics and will be admitted to Dr. Hernandez. Patient hemodynamically stable. Patient has had multiple falls and is over [address] was done to rule out intracranial hemorrhage. Dragon Disclaimer: Dragon Disclaimer: This electronic medical record was generated, in whole or in part, using a voice recognition dictation system. Departure Departure Impression: Primary Impression: Urinary retention Additional Impressions: UTI (urinary tract infection) Head injury Disposition: ADMITTED INPATIENT Admitting Physician: YAZMIN (ABBY) Condition: STABLE Referrals: HERNANDEZ ROSA MD (PCP) Justicifation of Admission Dx: Justifications for Admission: Justification of Admission Dx: Yes (URINARY RETENTION, UTI) ANGEL STEPHENSON MD Dec 04, 2019 18:44
[2019-12-04] MEDS ORDERED: cefTRIAXone IV Push 1 GM VIAL. IVP ONE (18:45)
[2019-12-04] MEDS ORDERED: IV NORMAL SALINE 1000ML BAG 1,000 ML IV ONE (18:45)
[2019-12-04 19:11] LABS: BILIRUBIN,URINE NEGATIVE (NEG); CLARITY,URINE CLOUDY; COLOR,URINE YELLOW; NITRITE,URINE NEGATIVE (NEG); PROTEIN,URINE 100 mg/dL (NEG-TRACE)
[2019-12-04 19:20] LABS: BACTERIA,URINE FEW /HPF (0-FEW); RBC,URINE TNTC /HPF (0-2); SQUAMOUS EPITHELIAL CELL,UR FEW /LPF; WBC,URINE TNTC /HPF (0-4)
[2019-12-04 19:21] LABS: AMORPHOUS SEDIMENT,UR PRESENT /HPF
--- NOTE | 2019-12-04 19:26 | RAD ---
EXAM: AP View of the chest DATE: 12/04/2019 7:04 PM INDICATION: Fever COMPARISON: 05/07/2016 FINDINGS: The heart is not enlarged. Aorta is mildly tortuous. Linear and patchy opacities bilaterally particularly in the peripheral lungs, increased compared to 917. No pleural effusion or pneumothorax. IMPRESSION: Peripheral opacities with interstitial prominence may be seen with infectious/inflammatory process although background of chronic interstitial lung disease is suspected. Electronically signed by: Juan Fulton MD (12/04/2019 7:23 PM) [facility]
--- NOTE | 2019-12-04 19:26 | RAD ---
EXAM: AP pelvis DATE: 12/04/2019 7:04 PM INDICATION: Reason: fall / Spl. Instructions: / History: COMPARISON: No Prior FINDINGS: Degenerative changes of the spine, hip joints and SI joints. Marked osteopenia limits evaluation for acute fracture. Within these constraints no acute fracture or dislocation. IMPRESSION: Within the constraints of osteopenia, no evidence for acute fracture or dislocation. If there is persistent clinical concern for fracture, given degree of osteopenia, MRI is recommended. Electronically signed by: Juan Fulton MD (12/04/2019 7:23 PM) [facility]
[2019-12-04 19:42] LABS: BASO % 0 % (0-3); EOS % 0 % (0-3); HEMATOCRIT 43.8 % (39.0-53.0); HEMOGLOBIN 15.3 g/dL (13.0-17.5); LYMPH # 0.3 x10^3/uL (1.0-4.8); LYMPH % 3 % (24-48); MEAN CORPUSCULAR HEMOGLOBIN 32 pg (25-35); MEAN CORPUSCULAR HGB CONC 35 g/dL (31-37); MEAN CORPUSCULAR VOLUME 91 fL (79-100); MONO # 0.9 x10^3/uL (0.0-1.1); MONO % 9 % (0-9); NEUT # 8.6 x10^3/uL (1.8-7.7); NEUT % 87 % (31-73); PLATELET COUNT 203 x10^3/uL (140-400); RED BLOOD COUNT 4.79 x10^6/uL (4.30-5.70); RED CELL DISTRIBUTION WIDTH 12.5 % (11.5-14.5); WHITE BLOOD COUNT 9.9 x10^3/uL (4.0-11.0)
[2019-12-04 19:49] LABS: CALCIUM 9.1 mg/dL (8.5-10.1); CREATININE 0.8 mg/dL (0.7-1.3); GFR 91.7; POTASSIUM 4.2 mmol/L (3.5-5.1)
[2019-12-04 19:50] LABS: PROTHROMBIN TIME PATIENT 14.1 SEC (11.7-14.0)
[2019-12-04 19:55] LABS: ALBUMIN 3.6 g/dL (3.4-5.0); ALBUMIN/GLOBULIN RATIO 0.9 (1.0-1.7); TOTAL BILIRUBIN 0.7 mg/dL (0.2-1.0); TOTAL PROTEIN 7.4 g/dL (6.4-8.2)
[2019-12-04 19:59] LABS: % BANDS 10 % (0-9); % LYMPHS 3 % (24-48); % MONOS 10 % (0-10); % SEGS 77 % (35-66); PLT ESTIMATE ADEQUATE (ADEQUATE)
--- NOTE | 2019-12-04 20:03 | PDOC1 ---
History and Physical Date of Admission Date of Admission DATE: 12/04/19 TIME: 20:03 Identification/Chief Complaint Chief Complaint Urinary retention Source Source: Patient History of Present Illness History of Present Illness Mr Castillo is a 84 year old male w/ PMHx HTN, HLD, Diabetes-Type II, COPD, melanoma, neurogenic bladder self caths 3x daily who presents via EMS with a chief complaint of unable to cath for urine since 2:00 in the morning on 12/04/2019. He has had some lower abdominal pain. Patient has been feeling weak over the last several days and had a fall last where he hit his head has bilateral hip tenderness as well. Patient also generalized weakness and a fever for EMS. He does note multiple falls over the past year, at least 4. Has a cough, notes it is a chronic cough from his COPD. No recent sick contacts or COVID 19 contacts. No recent travel. Labs with CBC and BMP with values within normal limits, lactate 1.5, troponin 0, procalcitonin negative. Glucose 142. EKG appears sinus tachycardia with a rate of 113 left anterior fascicular block, left axis deviation nonspecific ST changes normal intervals Duarte catheter placed in ED with greater than 1000mL urine out, patient felt relief. UA with blood and leukocyte esterase positive. CT head, pelvic XR with no abnormalities. CXR with interstitial pattern concern for chronic ILD. Admitted for further treatment. Past Medical History Cardiovascular: HTN, Hyperlipidemia Pulmonary: COPD CENTRAL NERVOUS SYSTEM: Other GI: Other Heme/Onc: Cancer Hepatobiliary: No pertinent hx Psych: No pertinent hx Musculoskeletal: Osteoarthritis Rheumatologic: No pertinent hx Infectious disease: No pertinent hx Renal/: Other Endocrine: Diabetes Past Surgical History Past Surgical History: Tonsillectomy, Other Family History Family History: Cancer Social History Smoke: Quit ALCOHOL: none Drugs: None Current Problem List Problem List Problems Medical Problems: (1) Urinary retention Status: Acute (2) UTI (urinary tract infection) Status: Acute Current Medications Current Medications Current Medications Sodium Chloride 1,000 ml @ 1,000 mls/hr 1X ONCE IV Last administered on 12/04/19at 19:37; Start 12/04/19 at 18:45; Stop 12/04/19 at 19:44; Status DC Lidocaine HCl (Glydo (Lidocaine) Jelly) 6 lupe EndoDexMED ONCE .ROUTE ; Start 12/04/19 at 18:38; Stop 12/04/19 at 18:38; Status DC Ceftriaxone Sodium (Rocephin) 1 gm 1X ONCE IVP Last administered on 12/04/19at 19:38; Start 12/04/19 at 18:45; Stop 12/04/19 at 18:46; Status DC Active Scripts Active Prednisone 20 Mg Tablet 60 Mg PO DAILY Lisinopril 40 Mg Tablet 40 Mg PO DAILY Levaquin (Levofloxacin) 500 Mg Tablet 500 Mg PO DAILY06 Reported Montelukast Sodium Tablet (Montelukast Sodium) 10 Mg Tablet 10 Mg PO HS Fish Oil 1,000 Mg Capsule ([place]-3 Fatty Acids/Fish Oil) 1 Each Capsule 1 Each PO DAILY Multi-Vitamin Daily (Multivitamin) 1 Each Tablet 1 Each PO Simvastatin 10 Mg Tablet 1 Tab PO QHS Metformin Hcl 500 Mg Tablet 1 Tab PO BID Flovent 100MCG Diskus (Fluticasone Propionate) 100 Mcg Disk.w.dev 1 Puff IH BID Combivent Respimat Inhal (Ipratropium/Albuterol Sulfate) 4 Gm Aer.w.adap 2 Inh IH QID Fluticasone Propionate Nasal [place] (Fluticasone Propionate) 16 Gm [place].susp 2 [place] NS DAILY Allergies Allergies: Coded Allergies: aspirin (Verified Allergy, Intermediate, 05/07/16) ROS General: YES: Fatigue, Malaise; No: Chills, Night Sweats, Appetite, Other PSYCHOLOGICAL ROS: No: Anxiety, Behavioral Disorder, Concentration difficultie, Decreased libido, Depression, Disorientation, Hallucinations, Hostility, Irritablity, Memory difficulties, Mood Swings, Obsessive thoughts, Physical abuse, Sexual abuse, Sleep disturbances, Suicidal ideation, Other Eyes: No Blurry vision, No Decreased vision, No Double vision, No Dry eyes, No Excessive tearing, No Eye Pain, No Itchy Eyes, No Loss of vision, No Photophobia, No Scotomata, No Uses contacts, No Uses glasses, No Other HEENT: No: Heacaches, Visual Changes, Hearing change, Nasal congestion, Nasal discharge, Oral lesions, Sinus pain, Sore Throat, Epistaxis, Sneezing, Snoring, Tinnitus, Vertigo, Vocal changes, Other ALLERGY AND IMMUNOLOGY: No: Hives, Insect Bite Sensitivity, Itchy/Watery Eyes, Nasal Congestion, Post Nasal Drip, Seasonal Allergies, Other Hematological and Lymphatic: No: Bleeding Problems, Blood Clots, Blood Transfusions, Brusing, Night Sweats, Pallor, Swollen Lymph Nodes, Other ENDOCRINE: No: Breast Changes, Galactorrhea, Hair Pattern Changes, Hot Flashes, Malaise/lethargy, Mood Swings, Palpitations, Polydipsia/polyuria, Skin Changes, Temperature Intolerance, Unexpected Weight Changes, Other Breast: No New/Changing Breast Lumps, No Nipple changes, No Nipple discharge, No Other Respiratory: YES: Cough; No: Hemoptysis, Orthopnea, Pleuritic Pain, Shortness of breath, SOB with excertion, Sputum Changes, Stridor, Tachypnea, Wheezing, Other Cardiovascular: No Chest Pain, No Palpitations, No Orthopnea, No Paroxysmal Noc. Dyspnea, No Edema, No Lt Headedness, No Other Gastrointestinal: No Nausea, No Vomiting, No Abdominal Pain, No Diarrhea, No Constipation, No Melena, No Hematochezia, No Other Genitourinary: YES Dysuria, YES Frequency, YES Retention, YES Urgency, YES Pain ; No Incontinence, No Hematuria, No Discharge, No Flank Pain, No Other, No , No , No , No , No , No , No Musculoskeletal: Yes Gait Disturbance; No Joint Pain, No Joint Stiffness, No Joint Swelling, No Muscle Pain, No Muscular Weakness, No Pain In:, No Swelling In:, No Other Neurological: Yes Dizziness, Yes Gait Disturbance; No Behavorial Changes, No Bowel/Bladder ControlChng, No Confusion, No Headaches, No Impaired Coord/balance, No Memory Loss, No Numbness/Tingling, No Seizures, No Speech Problems, No Tremors, No Visual Changes, No Weakness, No Other Skin: No Dry Skin, No Eczema, No Hair Changes, No Lumps, No Mole Changes, No Mottling, No Nail Changes, No Pruritus, No Rash, No Skin Lesion Changes, No Other, No Acne Physical Exam General: Alert, Oriented X3, Cooperative, No acute distress HEENT: Atraumatic, PERRLA, EOMI, Mucous membr. moist/pink Lungs: Other (scattered wheezes bilaterally) Heart: S1S2, RRR, no thrills, no rubs, no gallops, no murmurs Abdomen: Normal bowel sounds, Soft, No tenderness, No hepatosplenomegaly, No masses Rectal Exam: not examined Extremities: No clubbing, No cyanosis, No edema, Normal pulses, No tenderness/swelling Skin: No rashes, No breakdown, No significant lesion Neuro: Normal speech, Strength at 5/5 X4 ext, Normal tone, Sensation intact, Cranial nerves 3-12 NL, Reflexes 2+ Psych/Mental Status: Mental status NL, Mood NL Vitals Vitals Vital Signs Date Time Temp Pulse Resp B/P (MAP) Pulse Ox O2 Delivery O2 Flow Rate FiO2 12/04/19 19:19 98.3 108 24 96 98.3 12/04/19 18:20 170/79 (109) Room Air Labs Labs Laboratory Tests Test 12/04/19 19:05 12/04/19 19:26 12/04/19 19:30 Urine Collection Type U cath Urine Color Yellow Urine Clarity Cloudy Urine pH 8.0 (<5.0-8.0) Urine Specific [place] 1.010 (1.000-1.030) Urine Protein 100 mg/dL (NEG-TRACE) Urine Glucose (UA) Negative mg/dL (NEG) Urine Ketones (Stick) 15 mg/dL (NEG) Urine Blood Large (NEG) Urine Nitrite Negative (NEG) Urine Bilirubin Negative (NEG) Urine Urobilinogen Dipstick 1.0 mg/dL (0.2 mg/dL) Urine Leukocyte Esterase Large (NEG) Urine RBC Tntc /HPF (0-2) Urine WBC Tntc /HPF (0-4) Urine Squamous Epithelial Cells Few /LPF Urine Amorphous Sediment Present /HPF Urine Bacteria Few /HPF (0-FEW) Lactic Acid Level 1.5 mmol/L (0.4-2.0) White Blood Count 9.9 x10^3/uL (4.0-11.0) Red Blood Count 4.79 x10^6/uL (4.30-5.70) Hemoglobin 15.3 g/dL (13.0-17.5) Hematocrit 43.8 % (39.0-53.0) Mean Corpuscular Volume 91 fL (79-100) Mean Corpuscular Hemoglobin 32 pg (25-35) Mean Corpuscular Hemoglobin Concent 35 g/dL (31-37) Red Cell Distribution Width 12.5 % (11.5-14.5) Platelet Count 203 x10^3/uL (140-400) Neutrophils (%) (Auto) 87 % (31-73) Lymphocytes (%) (Auto) 3 % (24-48) Monocytes (%) (Auto) 9 % (0-9) Eosinophils (%) (Auto) 0 % (0-3) Basophils (%) (Auto) 0 % (0-3) Neutrophils # (Auto) 8.6 x10^3/uL (1.8-7.7) Lymphocytes # (Auto) 0.3 x10^3/uL (1.0-4.8) Monocytes # (Auto) 0.9 x10^3/uL (0.0-1.1) Eosinophils # (Auto) 0.0 x10^3/uL (0.0-0.7) Basophils # (Auto) 0.0 x10^3/uL (0.0-0.2) Segmented Neutrophils % 77 % (35-66) Band Neutrophils % 10 % (0-9) Lymphocytes % 3 % (24-48) Monocytes % 10 % (0-10) Platelet Estimate Adequate (ADEQUATE) Prothrombin Time 14.1 SEC (11.7-14.0) Prothromb Time International Ratio 1.1 (0.8-1.1) Activated Partial Thromboplast Time 30 SEC (24-38) Sodium Level 135 mmol/L (136-145) Potassium Level 4.2 mmol/L (3.5-5.1) Chloride Level 98 mmol/L (98-107) Carbon Dioxide Level 27 mmol/L (21-32) Anion Gap 10 (6-14) Blood Urea Nitrogen 12 mg/dL (8-26) Creatinine 0.8 mg/dL (0.7-1.3) Estimated GFR (Cockcroft-Gault) 91.7 BUN/Creatinine Ratio 15 (6-20) Glucose Level 142 mg/dL (70-99) Calcium Level 9.1 mg/dL (8.5-10.1) Total Bilirubin 0.7 mg/dL (0.2-1.0) Aspartate Amino Transf (AST/SGOT) 23 U/L (15-37) Alanine Aminotransferase (ALT/SGPT) 22 U/L (16-63) Alkaline Phosphatase 121 U/L (46-116) Total Protein 7.4 g/dL (6.4-8.2) Albumin 3.6 g/dL (3.4-5.0) Albumin/Globulin Ratio 0.9 (1.0-1.7) Lipase 68 U/L (73-393) Laboratory Tests Test 12/04/19 19:05 12/04/19 19:26 12/04/19 19:30 Urine Collection Type U cath Urine Color Yellow Urine Clarity Cloudy Urine pH 8.0 (<5.0-8.0) Urine Specific [place] 1.010 (1.000-1.030) Urine Protein 100 mg/dL (NEG-TRACE) Urine Glucose (UA) Negative mg/dL (NEG) Urine Ketones (Stick) 15 mg/dL (NEG) Urine Blood Large (NEG) Urine Nitrite Negative (NEG) Urine Bilirubin Negative (NEG) Urine Urobilinogen Dipstick 1.0 mg/dL (0.2 mg/dL) Urine Leukocyte Esterase Large (NEG) Urine RBC Tntc /HPF (0-2) Urine WBC Tntc /HPF (0-4) Urine Squamous Epithelial Cells Few /LPF Urine Amorphous Sediment Present /HPF Urine Bacteria Few /HPF (0-FEW) Lactic Acid Level 1.5 mmol/L (0.4-2.0) White Blood Count 9.9 x10^3/uL (4.0-11.0) Red Blood Count 4.79 x10^6/uL (4.30-5.70) Hemoglobin 15.3 g/dL (13.0-17.5) Hematocrit 43.8 % (39.0-53.0) Mean Corpuscular Volume 91 fL (79-100) Mean Corpuscular Hemoglobin 32 pg (25-35) Mean Corpuscular Hemoglobin Concent 35 g/dL (31-37) Red Cell Distribution Width 12.5 % (11.5-14.5) Platelet Count 203 x10^3/uL (140-400) Neutrophils (%) (Auto) 87 % (31-73) Lymphocytes (%) (Auto) 3 % (24-48) Monocytes (%) (Auto) 9 % (0-9) Eosinophils (%) (Auto) 0 % (0-3) Basophils (%) (Auto) 0 % (0-3) Neutrophils # (Auto) 8.6 x10^3/uL (1.8-7.7) Lymphocytes # (Auto) 0.3 x10^3/uL (1.0-4.8) Monocytes # (Auto) 0.9 x10^3/uL (0.0-1.1) Eosinophils # (Auto) 0.0 x10^3/uL (0.0-0.7) Basophils # (Auto) 0.0 x10^3/uL (0.0-0.2) Segmented Neutrophils % 77 % (35-66) Band Neutrophils % 10 % (0-9) Lymphocytes % 3 % (24-48) Monocytes % 10 % (0-10) Platelet Estimate Adequate (ADEQUATE) Prothrombin Time 14.1 SEC (11.7-14.0) Prothromb Time International Ratio 1.1 (0.8-1.1) Activated Partial Thromboplast Time 30 SEC (24-38) Sodium Level 135 mmol/L (136-145) Potassium Level 4.2 mmol/L (3.5-5.1) Chloride Level 98 mmol/L (98-107) Carbon Dioxide Level 27 mmol/L (21-32) Anion Gap 10 (6-14) Blood Urea Nitrogen 12 mg/dL (8-26) Creatinine 0.8 mg/dL (0.7-1.3) Estimated GFR (Cockcroft-Gault) 91.7 BUN/Creatinine Ratio 15 (6-20) Glucose Level 142 mg/dL (70-99) Calcium Level 9.1 mg/dL (8.5-10.1) Total Bilirubin 0.7 mg/dL (0.2-1.0) Aspartate Amino Transf (AST/SGOT) 23 U/L (15-37) Alanine Aminotransferase (ALT/SGPT) 22 U/L (16-63) Alkaline Phosphatase 121 U/L (46-116) Total Protein 7.4 g/dL (6.4-8.2) Albumin 3.6 g/dL (3.4-5.0) Albumin/Globulin Ratio 0.9 (1.0-1.7) Lipase 68 U/L (73-393) Images Images Pelvis XR: Degenerative changes of the spine, hip joints and SI joints. Marked osteopenia limits evaluation for acute fracture. Within these constraints no acute fracture or dislocation. IMPRESSION: Within the constraints of osteopenia, no evidence for acute fracture or dislocation. If there is persistent clinical concern for fracture, given degree of osteopenia, MRI is recommended. CXR: The heart is not enlarged. Aorta is mildly tortuous. Linear and patchy opacities bilaterally particularly in the peripheral lungs, increased compared to 917. No pleural effusion or pneumothorax. IMPRESSION: Peripheral opacities with interstitial prominence may be seen with infectious/inflammatory process although background of chronic interstitial lung disease is suspected. CT HEAD WITHOUT CONTRAST: FINDINGS: There is no intracranial hemorrhage. Dimas-white differentiation is preserved. The ventricles are normal in size and position for patient age. The left maxillary sinus, frontal sinus, sphenoid sinus and ethmoid air cells are diffusely opacified. The right maxillary sinus is mostly opacified. There are changes of bilateral cataract surgery. The temporal bones are unremarkable. The calvarium reveals no suspicious lesions. There are atherosclerotic calcifications of the internal carotid and vertebral arteries. IMPRESSION: 1. No acute intracranial findings. 2. Diffuse opacification of the paranasal sinuses is chronic but has progressed since 2017. VTE Prophylaxis Ordered VTE Prophylaxis Devices: Yes VTE Pharmacological Prophylaxi: No Assessment/Plan Assessment/Plan A/P: Frequent falls - needs PT/OT, gait training, previously concerning for syncope Fever - will monitor fever curve Urinary retention - will keep duarte catheter, flomax UTI in male - will f/u on culture, cont rocephin HTN - cont meds HLD - cont meds Diabetes-Type II - sliding scale COPD - prn nebs Chronic cough - hold lisinopril H/o melanoma - treated, in remission Neurogenic bladder self caths 3x daily - unable to pass duarte, likely with prostate enlargement. will start flomax prior to duarte d/c FEN - ADA diet PPX - heparin FULL CODE Dispo - inpatient for above, likely will need skilled services on d/c Justifications for Admission Other Justification RUTH MORA MD Dec 04, 2019 20:03
[2019-12-04] MEDS ORDERED: ONDANSETRON PF 4 MG/2 ML VIAL. IV PRN ×2 (20:15)
--- NOTE | 2019-12-04 21:27 | RAD ---
EXAM: CT HEAD WITHOUT CONTRAST. HISTORY: Fall, head injury. TECHNIQUE: Computed tomography of the head was performed without intravenous contrast. One or more of the following individualized dose reduction techniques were utilized for this examination: 1. Automated exposure control. 2. Adjustment of the mA and/or kV according to patient size. 3. Use of iterative reconstruction technique. COMPARISON: None. FINDINGS: There is no intracranial hemorrhage. Dimas-white differentiation is preserved. The ventricles are normal in size and position for patient age. The left maxillary sinus, frontal sinus, sphenoid sinus and ethmoid air cells are diffusely opacified. The right maxillary sinus is mostly opacified. There are changes of bilateral cataract surgery. The temporal bones are unremarkable. The calvarium reveals no suspicious lesions. There are atherosclerotic calcifications of the internal carotid and vertebral arteries. IMPRESSION: 1. No acute intracranial findings. 2. Diffuse opacification of the paranasal sinuses is chronic but has progressed since 2017. Electronically signed by: Khris Sutton MD (12/04/2019 9:24 PM) [facility]
[2019-12-05] VITALS (7 sets, daily range): BP systolic 115–157; BP diastolic 52–67
[2019-12-05] MEDS ORDERED: DOCUSATE SODIUM 100 MG CAPSULE. PO PRN (01:15)
[2019-12-05] MEDS ORDERED: DEXTROSE 50% 25 GM / 50ML DISP.SYRIN. IV PRN (01:15)
[2019-12-05] MEDS ORDERED: guaiFENesin DM 200MG/20MG 10 ML SYRUP PO PRN (01:15)
[2019-12-05] MEDS ORDERED: ONDANSETRON PF 4 MG/2 ML VIAL. IV PRN (01:15)
[2019-12-05] MEDS ORDERED: ACETAMINOPHEN 325 MG TABLET. PO PRN (01:15)
[2019-12-05] MEDS ORDERED: TAMSULOSIN 0.4 MG CAP.ER.24H. PO ONE (01:30)
[2019-12-05] MEDS: HEPARIN for SUB-Q USE 5,000 UNIT/ML VIAL. SQ SCH ×3 (06:38→22:05)
[2019-12-05] MEDS: BUDESONIDE 0.5 MG/2 ML NEBU. NEB SCH ×2 (07:08→20:00)
[2019-12-05] MEDS: IPRATRPIUM/ALBUTEROL 0.5/2.5MG 3 ML NEBU. NEB SCH ×4 (07:08→20:00)
--- NOTE | 2019-12-05 08:22 | EKG ---
[facility] [address] [place] [address] Test Date: 2019-12-04 Test Time: 18:34:54 Pat Name: MYAH OSBORN Department: Room: Gender: M [employer] Clerk: : [id number] Requested By: ANGEL STEPHENSON Order Number: [id number] Reading MD: Measurements Intervals [place] Rate: 113 P: 64 CO: 184 QRS: -31 QRSD: 100 T: 90 QT: 324 QTc: 444 Interpretive Statements SINUS TACHYCARDIA LEFT ATRIAL ABNORMALITY ABNORMAL LEFT AXIS DEVIATION LEFT ANTERIOR FASCICULAR BLOCK QRS(T) CONTOUR ABNORMALITY CONSISTENT WITH ANTEROSEPTAL INFARCT AGE UNDETERMINED ST & T ABNORMALITY, CONSIDER HIGH LATERAL ISCHEMIA OR LEFT VENTRICULAR STRAIN ABNORMAL ECG RI6.02
[2019-12-05] MEDS ORDERED: NON FORMULARY ITEM (Ipratropium/Albuterol Sulfate (Combivent Respimat Inhal) 2 INH) IH SCH (09:00)
[2019-12-05] MEDS ORDERED: NON FORMULARY ITEM (Fluticasone Propionate (Flovent 100MCG Diskus) 1 PUFF) IH SCH (09:00)
[2019-12-05] MEDS: POLYETHYLENE GLYCOL 3350 17 GM PACKET. PO SCH (09:00)
[2019-12-05] MEDS: OMEGA-3 FATTY ACIDS/FISH OIL 1,000 MG CAPSULE. PO SCH (09:13)
[2019-12-05] MEDS: FLUTICASONE 50MCG/NASAL SPRAY 16GM BOTTLE. NS SCH (09:14)
[2019-12-05] MEDS: INSULIN LISPRO 300 UNITS/3 ML VIAL. SQ SCH ×3 (09:28→17:00)
--- NOTE | 2019-12-05 14:34 | NUR ---
SW following. Spoke with RN and reviewed chart. Spoke with pt. Pt stated his son lives with him and helps care for him and his who has been diagnosed with dementia. Pt reported his son his retired and available for 24 hour care. Pt on room air, IV Rocephin, cardiac diet. Pt reported he has had [facility] in the past and would like to have HH from [facility] on discharge. Patient Choice of Vendor form completed. Referral to Kirstin with [facility]. Pt added to potential weekend discharge list.
--- NOTE | 2019-12-05 17:51 | PDOC ---
[employer] PROGRESS NOTE Date of Service DOS: DATE: 12/05/19 TIME: 17:49 Chief Complaint Chief Complaint Urinary retention Plan: Frequent falls - needs PT/OT, gait training, previously concerning for syncope Fever - will monitor fever curve Urinary retention - will keep duarte catheter, flomax UTI in male - will f/u on culture, cont rocephin HTN - cont meds HLD - cont meds Diabetes-Type II - sliding scale COPD - prn nebs Chronic cough - hold lisinopril H/o melanoma - treated, in remission Neurogenic bladder self caths 3x daily - unable to pass duarte, likely with prostate enlargement. will start flomax prior to duarte d/c History of Present Illness History of Present Illness Patient denies any suprapubic discomfort. Denies fever, or hematuria. Denies a long history of urinary retention. Discussed with RN. Vitals/I&O Vitals/I&O: Vital Signs Date Time Temp Pulse Resp B/P (MAP) Pulse Ox O2 Delivery O2 Flow Rate FiO2 12/05/19 15:00 98.0 95 18 132/66 (88) 94 Room Air 98.0 l I & O 12/04/19 12/04/19 12/05/19 15:00 23:00 07:00 Intake Total 1000 ml 120 ml Output Total 0 ml Balance 1000 ml 120 ml Physical Exam General: Alert, Oriented X3, Cooperative, No acute distress Abdomen: Normal bowel sounds, Soft, No tenderness, No hepatosplenomegaly, No masses Extremities: No clubbing, No cyanosis, No edema, Normal pulses, No tenderness/swelling Skin: No rashes, No breakdown, No significant lesion Labs Labs: Laboratory Tests Test 12/04/19 19:05 12/04/19 19:26 12/04/19 19:30 12/04/19 22:25 Urine Collection Type U cath Urine Color Yellow Urine Clarity Cloudy Urine pH 8.0 (<5.0-8.0) Urine Specific [place] 1.010 (1.000-1.030) Urine Protein 100 mg/dL (NEG-TRACE) Urine Glucose (UA) Negative mg/dL (NEG) Urine Ketones (Stick) 15 mg/dL (NEG) Urine Blood Large (NEG) Urine Nitrite Negative (NEG) Urine Bilirubin Negative (NEG) Urine Urobilinogen Dipstick 1.0 mg/dL (0.2 mg/dL) Urine Leukocyte Esterase Large (NEG) Urine RBC Tntc /HPF (0-2) Urine WBC Tntc /HPF (0-4) Urine Squamous Epithelial Cells Few /LPF Urine Amorphous Sediment Present /HPF Urine Bacteria Few /HPF (0-FEW) Lactic Acid Level 1.5 mmol/L (0.4-2.0) White Blood Count 9.9 x10^3/uL (4.0-11.0) Red Blood Count 4.79 x10^6/uL (4.30-5.70) Hemoglobin 15.3 g/dL (13.0-17.5) Hematocrit 43.8 % (39.0-53.0) Mean Corpuscular Volume 91 fL (79-100) Mean Corpuscular Hemoglobin 32 pg (25-35) Mean Corpuscular Hemoglobin Concent 35 g/dL (31-37) Red Cell Distribution Width 12.5 % (11.5-14.5) Platelet Count 203 x10^3/uL (140-400) Neutrophils (%) (Auto) 87 % (31-73) Lymphocytes (%) (Auto) 3 % (24-48) Monocytes (%) (Auto) 9 % (0-9) Eosinophils (%) (Auto) 0 % (0-3) Basophils (%) (Auto) 0 % (0-3) Neutrophils # (Auto) 8.6 x10^3/uL (1.8-7.7) Lymphocytes # (Auto) 0.3 x10^3/uL (1.0-4.8) Monocytes # (Auto) 0.9 x10^3/uL (0.0-1.1) Eosinophils # (Auto) 0.0 x10^3/uL (0.0-0.7) Basophils # (Auto) 0.0 x10^3/uL (0.0-0.2) Segmented Neutrophils % 77 % (35-66) Band Neutrophils % 10 % (0-9) Lymphocytes % 3 % (24-48) Monocytes % 10 % (0-10) Platelet Estimate Adequate (ADEQUATE) Prothrombin Time 14.1 SEC (11.7-14.0) Prothromb Time International Ratio 1.1 (0.8-1.1) Activated Partial Thromboplast Time 30 SEC (24-38) Sodium Level 135 mmol/L (136-145) Potassium Level 4.2 mmol/L (3.5-5.1) Chloride Level 98 mmol/L (98-107) Carbon Dioxide Level 27 mmol/L (21-32) Anion Gap 10 (6-14) Blood Urea Nitrogen 12 mg/dL (8-26) Creatinine 0.8 mg/dL (0.7-1.3) Estimated GFR (Cockcroft-Gault) 91.7 BUN/Creatinine Ratio 15 (6-20) Glucose Level 142 mg/dL (70-99) Calcium Level 9.1 mg/dL (8.5-10.1) Total Bilirubin 0.7 mg/dL (0.2-1.0) Aspartate Amino Transf (AST/SGOT) 23 U/L (15-37) Alanine Aminotransferase (ALT/SGPT) 22 U/L (16-63) Alkaline Phosphatase 121 U/L (46-116) Total Protein 7.4 g/dL (6.4-8.2) Albumin 3.6 g/dL (3.4-5.0) Albumin/Globulin Ratio 0.9 (1.0-1.7) Lipase 68 U/L (73-393) Procalcitonin < 0.10 ng/mL (0.00-0.10) Troponin I Quantitative < 0.017 ng/mL (0.000-0.055) Test 12/05/19 03:50 12/05/19 09:07 12/05/19 11:54 12/05/19 17:02 Troponin I Quantitative < 0.017 ng/mL (0.000-0.055) Glucose (Fingerstick) 235 mg/dL (70-99) 168 mg/dL (70-99) 115 mg/dL (70-99) Review of Systems Review of Systems: Denies fever, denies suprapubic abdominal pain, denies nausea, denies vomiting. Assessment and Plan Assessmemt and Plan Problems Medical Problems: (1) Head injury Status: Acute (2) Urinary retention Status: Acute (3) UTI (urinary tract infection) Status: Acute Comment Review of Relevant I have reviewed the following items jason (where applicable) has been applied. Medications: Current Medications Medications (Trade) Dose Ordered Sig/Neel Route PRN Reason Start Time Stop Time Status Last Admin Dose Admin Sodium Chloride 1,000 ml @ 1,000 mls/hr 1X ONCE IV 12/04/19 18:45 12/04/19 19:44 DC 12/04/19 19:37 Ceftriaxone Sodium (Rocephin) 1 gm 1X ONCE IVP 12/04/19 18:45 12/04/19 18:46 DC 12/04/19 19:38 Insulin Human Lispro (HumaLOG) 0-7 UNITS TIDWMEALS SQ 12/05/19 08:00 12/05/19 12:00 Fluticasone Propionate (Flonase) 2 spray DAILY NS 12/05/19 09:00 12/05/19 09:14 Fish Oil (Fish Oil) 1,000 mg DAILY PO 12/05/19 09:00 12/05/19 09:13 Heparin Sodium (Porcine) (Heparin Sodium) 5,000 unit Q8HRS SQ 12/05/19 06:00 12/05/19 15:02 Tamsulosin HCl (Flomax) 0.4 mg 1X ONCE PO 12/05/19 01:30 12/05/19 01:31 DC 12/05/19 01:39 Albuterol/ Ipratropium (Duoneb) 3 ml RTQID NEB 12/05/19 08:00 12/05/19 11:08 Budesonide (Pulmicort) 0.5 mg RTBID NEB 12/05/19 08:00 12/05/19 07:08 Justifications for Admission Other Justification VERITO ALBERTO MD Dec 05, 2019 17:51
[2019-12-05] MEDS: cefTRIAXone IV Push 1 GM VIAL. IVP SCH (19:19)
[2019-12-05] MEDS: LACTOBACILLUS RHAMNOSUS GG 1 CAPSULE. PO SCH (21:56)
[2019-12-05] MEDS: TAMSULOSIN 0.4 MG CAP.ER.24H. PO SCH (21:56)
[2019-12-05] MEDS: SIMVASTATIN 10 MG TABLET PO SCH (21:56)
[2019-12-05] MEDS: MONTELUKAST SODIUM 10 MG TABLET. PO SCH (21:57)
--- NOTE | 2019-12-05 23:08 | NUR ---
RESPIRATORY THERAPIST UNAVAILABLE TO GIVE 2000 BREATHING TX
[2019-12-06] MEDS: BUDESONIDE 0.5 MG/2 ML NEBU. NEB SCH ×2 (00:35→20:08)
[2019-12-06] MEDS: IPRATRPIUM/ALBUTEROL 0.5/2.5MG 3 ML NEBU. NEB SCH ×4 (00:35→20:08)
[2019-12-06 03:16] VITALS: BP 137/69
[2019-12-06] MEDS: HEPARIN for SUB-Q USE 5,000 UNIT/ML VIAL. SQ SCH ×3 (05:54→22:20)
[2019-12-06 07:05] VITALS: BP 123/60
[2019-12-06] MEDS: OMEGA-3 FATTY ACIDS/FISH OIL 1,000 MG CAPSULE. PO SCH (08:30)
[2019-12-06] MEDS: FLUTICASONE 50MCG/NASAL SPRAY 16GM BOTTLE. NS SCH (08:30)
[2019-12-06] MEDS: LACTOBACILLUS RHAMNOSUS GG 1 CAPSULE. PO SCH ×2 (08:30→20:49)
[2019-12-06] MEDS: POLYETHYLENE GLYCOL 3350 17 GM PACKET. PO SCH (08:31)
[2019-12-06] MEDS: INSULIN LISPRO 300 UNITS/3 ML VIAL. SQ SCH ×3 (08:32→17:12)
[2019-12-06 11:05] VITALS: BP 126/71
--- NOTE | 2019-12-06 12:14 | PDOC ---
[facility] PROGRESS NOTE Date of Service DOS: DATE: 12/06/19 TIME: 12:08 Chief Complaint Chief Complaint Urinary retention History of Present Illness History of Present Illness 12/06/2019 Patient seen and examined. Patient was sitting up in bed, wants to go home. Discussed with RN. Discussed with case management. Patient denies any suprapubic discomfort. Denies fever, or hematuria. Denies a long history of urinary retention. Discussed with RN. Vitals/I&O Vitals/I&O: Vital Signs Date Time Temp Pulse Resp B/P (MAP) Pulse Ox O2 Delivery O2 Flow Rate FiO2 12/06/19 11:41 96 Room Air 12/06/19 11:05 97.7 87 20 126/71 (89) 97.7 I & O 12/05/19 12/05/19 12/06/19 15:00 23:00 07:00 Intake Total 250 ml Output Total 2050 ml Balance 250 ml -2050 ml Physical Exam General: Alert, Oriented X3, Cooperative, No acute distress Heart: Regular rate, No murmurs Lungs: Clear Abdomen: Normal bowel sounds, Soft, No tenderness, No hepatosplenomegaly, No masses Extremities: No clubbing, No cyanosis, No edema, Normal pulses, No tenderness/swelling Skin: No rashes, No breakdown, No significant lesion Labs Labs: Laboratory Tests Test 12/05/19 17:02 12/05/19 20:22 12/06/19 07:24 12/06/19 10:41 Glucose (Fingerstick) 115 mg/dL (70-99) 181 mg/dL (70-99) 156 mg/dL (70-99) 190 mg/dL (70-99) Review of Systems Review of Systems: Denies N/V. Denies SOB. Assessment and Plan Assessmemt and Plan Problems Medical Problems: (1) Head injury Status: Acute (2) Urinary retention Status: Acute (3) UTI (urinary tract infection) Status: Acute Assessment: 1) Urinary retention due to neurogenic bladder and prostate enlargement 2) Hx frequent falls 3) HTN 4) Hyperlipidemia 5) COPD Plan: [facility]. PT, OT. Continue Flomax. Continue home meds. Disposition: d/c to U Sunday. Comment Review of Relevant I have reviewed the following items jason (where applicable) has been applied. Medications: Current Medications Medications (Trade) Dose Ordered Sig/Neel Route PRN Reason Start Time Stop Time Status Last Admin Dose Admin Montelukast Sodium (Singulair) 10 mg HS PO 12/05/19 21:00 12/05/19 21:57 Simvastatin (Zocor) 10 mg QHS PO 12/05/19 21:00 12/05/19 21:56 Tamsulosin HCl (Flomax) 0.4 mg QHS PO 12/05/19 21:00 12/05/19 21:56 Ceftriaxone Sodium (Rocephin) 1 gm Q24H IVP 12/05/19 19:00 12/05/19 19:19 Lactobacillus Rhamnosus (Culturelle) 1 cap BID PO 12/05/19 21:00 12/06/19 08:30 Justifications for Admission Other Justification AIMEE PATEL III DO Dec 06, 2019 12:14
[2019-12-06 15:05] VITALS: BP 136/62
[2019-12-06] MEDS: cefTRIAXone IV Push 1 GM VIAL. IVP SCH (18:55)
[2019-12-06 19:00] VITALS: BP 148/74
[2019-12-06] MEDS: MONTELUKAST SODIUM 10 MG TABLET. PO SCH (20:49)
[2019-12-06] MEDS: TAMSULOSIN 0.4 MG CAP.ER.24H. PO SCH (20:49)
[2019-12-06] MEDS: SIMVASTATIN 10 MG TABLET PO SCH (20:49)
[2019-12-06 23:01] VITALS: BP 170/74
[2019-12-07] VITALS (9 sets, daily range): BP systolic 143–172; BP diastolic 61–85
[2019-12-07] MEDS: HEPARIN for SUB-Q USE 5,000 UNIT/ML VIAL. SQ SCH ×3 (05:44→20:05)
[2019-12-07] MEDS: BUDESONIDE 0.5 MG/2 ML NEBU. NEB SCH ×2 (07:13→20:26)
[2019-12-07] MEDS: IPRATRPIUM/ALBUTEROL 0.5/2.5MG 3 ML NEBU. NEB SCH ×4 (07:13→20:26)
[2019-12-07] MEDS: INSULIN LISPRO 300 UNITS/3 ML VIAL. SQ SCH ×3 (08:00→17:00)
[2019-12-07] MEDS: POLYETHYLENE GLYCOL 3350 17 GM PACKET. PO SCH (09:00)
[2019-12-07] MEDS: LACTOBACILLUS RHAMNOSUS GG 1 CAPSULE. PO SCH ×2 (09:40→19:58)
[2019-12-07] MEDS: FLUTICASONE 50MCG/NASAL SPRAY 16GM BOTTLE. NS SCH (09:40)
[2019-12-07] MEDS: OMEGA-3 FATTY ACIDS/FISH OIL 1,000 MG CAPSULE. PO SCH (09:40)
--- NOTE | 2019-12-07 09:48 | PDOC ---
[facility] PROGRESS NOTE Date of Service DOS: DATE: 12/07/19 TIME: 09:44 Chief Complaint Chief Complaint Urinary retention History of Present Illness History of Present Illness 12/06/2019 Patient seen and examined. Patient was sitting up in bed, wants to go home. Discussed with RN. Discussed with case management. 12/07/2019 Patient evaluated at bedside. Patient states he felt exacerbated walking from the bathroom to his bed today. Urine culture growing gram-positive cocci. Continue antibiotics. Discussed with RN, needs SNF. Vitals/I&O Vitals/I&O: Vital Signs Date Time Temp Pulse Resp B/P (MAP) Pulse Ox O2 Delivery O2 Flow Rate FiO2 12/07/19 07:13 93 Room Air 12/07/19 07:00 98.4 83 18 144/68 (93) 98.4 I & O 12/06/19 12/06/19 12/07/19 15:00 23:00 07:00 Output Total 1450 ml 400 ml Balance -1450 ml -400 ml Physical Exam General: Alert, Oriented X3, Cooperative, No acute distress Heart: Regular rate, No murmurs Lungs: Clear Abdomen: Normal bowel sounds, Soft, No tenderness, No hepatosplenomegaly, No masses Extremities: No clubbing, No cyanosis, No edema, Normal pulses, No tenderness/swelling Skin: No rashes, No breakdown, No significant lesion Labs Labs: Laboratory Tests Test 12/06/19 10:41 12/06/19 15:26 12/06/19 20:30 12/07/19 07:42 Glucose (Fingerstick) 190 mg/dL (70-99) 207 mg/dL (70-99) 146 mg/dL (70-99) 153 mg/dL (70-99) Review of Systems Review of Systems: Denies suprapubic pain, denies fever, denies chills. Assessment and Plan Assessmemt and Plan Problems Medical Problems: (1) Head injury Status: Acute (2) Urinary retention Status: Acute (3) UTI (urinary tract infection) Status: Acute Assessment: 1) Urinary retention due to neurogenic bladder and prostate enlargement 2) Hx frequent falls 3) HTN 4) Hyperlipidemia 5) COPD Plan: [facility]. PT, OT. Continue Flomax. Continue home meds. Disposition: d/c to [facility] Sunday. Follow-up with urology. Comment Review of Relevant I have reviewed the following items jason (where applicable) has been applied. Justifications for Admission Other Justification VERITO ALBERTO MD Dec 07, 2019 09:48
[2019-12-07] MEDS: cefTRIAXone IV Push 1 GM VIAL. IVP SCH (19:20)
[2019-12-07] MEDS: SIMVASTATIN 10 MG TABLET PO SCH (19:58)
[2019-12-07] MEDS: TAMSULOSIN 0.4 MG CAP.ER.24H. PO SCH (19:58)
[2019-12-07] MEDS: MONTELUKAST SODIUM 10 MG TABLET. PO SCH (19:58)
[2019-12-08 03:05] VITALS: BP 95/46
[2019-12-08] MEDS: HEPARIN for SUB-Q USE 5,000 UNIT/ML VIAL. SQ SCH (06:39)
[2019-12-08 07:00] VITALS: BP 119/50
[2019-12-08] MEDS: BUDESONIDE 0.5 MG/2 ML NEBU. NEB SCH (07:30)
[2019-12-08] MEDS: IPRATRPIUM/ALBUTEROL 0.5/2.5MG 3 ML NEBU. NEB SCH ×2 (07:31→12:00)
[2019-12-08] MEDS: INSULIN LISPRO 300 UNITS/3 ML VIAL. SQ SCH ×2 (08:00→12:34)
--- NOTE | 2019-12-08 08:34 | PDOC ---
PROGRESS NOTES Date of Service: DATE: 12/08/19 TIME: 08:32 Chief Complaint Chief Complaint discharge dx Urinary retention Assessment and Plan Assessmemt and Plan Problems Medical Problems: (1) Head injury Status: Acute (2) Urinary retention Status: Acute (3) UTI (urinary tract infection) Status: Acute Assessment: 1) Urinary retention due to neurogenic bladder and prostate enlargement 2) Hx frequent falls 3) HTN 4) Hyperlipidemia 5) COPD Plan: [facility]. PT, OT. Continue Flomax. Continue home meds. Disposition: d/c to SN[facility] Sunday. Follow-up with urology. Comment Review of Relevant I have reviewed the following items jason (where applicable) has been applied. Justifications for Admission Justifications for Admission Other Justification History of Present Illness History of Present Illness 12/07 Patient seen and examined. Patient was sitting up in bed, wants to go home. Discussed with RN. Discussed with case management. d/c planning 28 min 12/08/2019 Patient evaluated at bedside. Urine culture growing gram-positive cocci. Continue antibiotics. Discussed with RN, wants home health History of Present Illness History of Present Illness Mr Castillo is a 84 year old male w/ PMHx HTN, HLD, Diabetes-Type II, COPD, melanoma, neurogenic bladder self caths 3x daily who presents via EMS with a chief complaint of unable to cath for urine since 2:00 in the morning on 12/04/2019. He has had some lower abdominal pain. Patient has been feeling weak over the last several days and had a fall last where he hit his head has bilateral hip tenderness as well. Patient also generalized weakness and a fever for EMS. He does note multiple falls over the past year, at least 4. Has a cough, notes it is a chronic cough from his COPD. No recent sick contacts or COVID 19 contacts. No recent travel. Labs with CBC and BMP with values within normal limits, lactate 1.5, troponin 0, procalcitonin negative. Glucose 142. EKG appears sinus tachycardia with a rate of 113 left anterior fascicular block, left axis deviation nonspecific ST changes normal intervals Casey catheter placed in ED with greater than 1000mL urine out, patient felt relief. UA with blood and leukocyte esterase positive. CT head, pelvic XR with no abnormalities. CXR with interstitial pattern concern for chronic ILD. Admitted for further treatment. Past Medical History Cardiovascular: HTN, Hyperlipidemia Pulmonary: COPD CENTRAL NERVOUS SYSTEM: Other GI: Other Heme/Onc: Cancer Hepatobiliary: No pertinent hx Psych: No pertinent hx Musculoskeletal: Osteoarthritis Rheumatologic: No pertinent hx Infectious disease: No pertinent hx Renal/: Other Endocrine: Diabetes Past Surgical History Past Surgical History: Tonsillectomy, Other Family History Family History: Cancer Social History Smoke: Quit ALCOHOL: none Drugs: None Vitals Vitals Vital Signs Date Time Temp Pulse Resp B/P (MAP) Pulse Ox O2 Delivery O2 Flow Rate FiO2 12/08/19 07:32 96 Room Air 12/08/19 07:00 97.7 81 17 119/50 (73) 97.7 Physical Exam General: Alert, Oriented X3, Cooperative, No acute distress Heart: Regular rate, Normal S1, No murmurs Lungs: Clear Abdomen: Normal bowel sounds, Soft, No tenderness, No hepatosplenomegaly, No masses Extremities: No clubbing, No cyanosis, No edema, Normal pulses, No tenderness/swelling Skin: No rashes, No breakdown, No significant lesion Labs LABS URINE CULTURE Final Final GREATER THAN 100,000 CFU/ML GRAM POSITIVE COCCI on 12/06/19 at 0827 FINAL ID= [[facility]] Testing Performed by: [address] [id number] For Inquires, the Physician may contact the Microbiology department at [phone] [facility] Unless otherwise specified, Testing Performed by: [address] [address] For Inquires, the Physician may contact the Microbiology department at [phone] Laboratory Tests Test 12/07/19 11:50 12/07/19 16:48 12/07/19 20:49 12/08/19 07:22 Glucose (Fingerstick) 132 mg/dL (70-99) 144 mg/dL (70-99) 141 mg/dL (70-99) 137 mg/dL (70-99) Assessment and Plan Assessmemt and Plan Problems Medical Problems: (1) Head injury Status: Acute (2) Urinary retention Status: Acute (3) UTI (urinary tract infection) Status: Acute DPOA REVIEW 17 MIN What Is a Power of Rubber Stamp Dies Inspector? A power of web engineer (POA) is a legal document giving one person (the agent or exagqqsb-hu-fdfo) the power to act for another person (the principal). The agent can have broad legal authority or limited authority to make legal decisions about the principal's property, finances or medical care. The power of web engineer is frequently used in the event of a principal's illness or disability, or when the principal can't be present to sign necessary legal documents for financial transactions. A power of web engineer can end for a number of reasons, such as when the principal dies, the principal revokes it, a court invalidates it, the principal divorces their spouse, who happens to be the agent, or the agent can no longer carry out the outlined responsibilities. Conventional POAs lapse when the creator becomes incapacitated, but a durable POA remains in force to enable the agent to manage the creators affairs, and a springing POA comes into effect only if and when the creator of the POA becomes incapacitated. A medical or healthcare POA enables an agent to make medical decisions on behalf of an incapacitated person. DPOA REVIEW 17 MIN What Is a Power of Rubber Stamp Dies Inspector? A power of web engineer (POA) is a legal document giving one person (the agent or rdmuwxys-gm-axmc) the power to act for another person (the principal). The agent can have broad legal authority or limited authority to make legal decisions about the principal's property, finances or medical care. The power of web engineer is frequently used in the event of a principal's illness or disability, or when the principal can't be present to sign necessary legal documents for financial transactions. A power of web engineer can end for a number of reasons, such as when the principal dies, the principal revokes it, a court invalidates it, the principal divorces their spouse, who happens to be the agent, or the agent can no longer carry out the outlined responsibilities. Conventional POAs lapse when the creator becomes incapacitated, but a durable POA remains in force to enable the agent to manage the creators affairs, and a springing POA comes into effect only if and when the creator of the POA becomes incapacitated. A medical or healthcare POA enables an agent to make medical decisions on behalf of an incapacitated person. [employer] A power of web engineer (POA) is a legal document giving one person, the agent or qvyneiul-sj-brsa the power to act for another person, the principal. The agent can have broad legal authority or limited authority to make decisions about the principal's property, finances or medical care. The power of web engineer is often used when a principal becomes ill or disabled, or when they can't be present to sign necessary legal documents for financial transactions. Understanding Power of Rubber Stamp Dies Inspector A power of web engineer should be considered when planning for long-term care. There are different types of POAs that fall under either a general power of web engineer or limited power of web engineer. A general power of web engineer acts on behalf of the principal in any and all matters, as allowed by the state. The agent under a general POA agreement may be authorized to take care of issues such as handling bank accounts, signing checks, selling property and assets like stocks, f A limited power of web engineer gives the agent the power to act on behalf of the principal in specific matters or events. For example, the limited POA may explicitly state that the agent is only allowed to manage the principal's residential accounts. A limited POA may also be limited to a specific period of time (e.g., if the principal will be out of the country for, say, two years). Most [place] of web engineer documents allow an agent to represent the principal in all property and financial matters as long as the principals mental state of mind is good. If a situation occurs where the principal becomes incapable of making decisions for him or herself, the POA agreement would automatically end. However, someone who wants the POA to remain in effect after the persons health deteriorates would need to sign a durable power of web engineer (DPOA). What is an advance directive? An advance directive is a legal document that says how you want to be cared for if you are unable to make decisions. You can include what medical treatments you would want and who you would trust to make decisions for you. An advance directive can also include other legal documents. A living will is a list of treatment preferences. It can be used to indicate whether you would want cardiopulmonary resuscitation (CPR), tube feedings, a breathing machine, or certain medicines, like antibiotics. The durable power of web engineer for health care document identifies the person you would want to make medical decisions for you. This person is also called a proxy. Your proxy should be familiar with your values and wishes. How do I get started? You can get advance directive documents for your state from your doctor's office or from http://www.caringinfo.org. Review the forms, and ask your doctor if you have any questions. Pick a person to be your proxy, and talk it over with that person. [employer] A power of web engineer (POA) is a legal document giving one person, the agent or ljeqjfms-ky-mwyd the power to act for another person, the principal. The agent can have broad legal authority or limited authority to make decisions about the principal's property, finances or medical care. The power of web engineer is often used when a principal becomes ill or disabled, or when they can't be present to sign necessary legal documents for financial transactions. Understanding Power of Rubber Stamp Dies Inspector A power of web engineer should be considered when planning for long-term care. There are different types of POAs that fall under either a general power of web engineer or limited power of web engineer. A general power of web engineer acts on behalf of the principal in any and all matters, as allowed by the state. The agent under a general POA agreement may be authorized to take care of issues such as handling bank accounts, signing checks, selling property and assets like stocks, f A limited power of web engineer gives the agent the power to act on behalf of the principal in specific matters or events. For example, the limited POA may explicitly state that the agent is only allowed to manage the principal's residential accounts. A limited POA may also be limited to a specific period of time (e.g., if the principal will be out of the country for, say, two years). Most [place] of web engineer documents allow an agent to represent the principal in all property and financial matters as long as the principals mental state of mind is good. If a situation occurs where the principal becomes incapable of making decisions for him or herself, the POA agreement would automatically end. However, someone who wants the POA to remain in effect after the persons health deteriorates would need to sign a durable power of web engineer (DPOA). What is an advance directive? An advance directive is a legal document that says how you want to be cared for if you are unable to make decisions. You can include what medical treatments you would want and who you would trust to make decisions for you. An advance directive can also include other legal documents. A living will is a list of treatment preferences. It can be used to indicate whether you would want cardiopulmonary resuscitation (CPR), tube feedings, a breathing machine, or certain medicines, like antibiotics. The durable power of web engineer for health care document identifies the person you would want to make medical decisions for you. This person is also called a proxy. Your proxy should be familiar with your values and wishes. How do I get started? You can get advance directive documents for your state from your doctor's office or from http://www.caringinfo.org. Review the forms, and ask your doctor if you have any questions. Pick a person to be your proxy, and talk it over with that person. Comment Review of Relevant I have reviewed the following items jason (where applicable) has been applied. Labs Laboratory Tests Test 12/06/19 10:41 9/19/20 15:26 12/06/19 20:30 12/07/19 07:42 Glucose (Fingerstick) 190 mg/dL (70-99) 207 mg/dL (70-99) 146 mg/dL (70-99) 153 mg/dL (70-99) Test 12/07/19 11:50 12/07/19 16:48 12/07/19 20:49 12/08/19 07:22 Glucose (Fingerstick) 132 mg/dL (70-99) 144 mg/dL (70-99) 141 mg/dL (70-99) 137 mg/dL (70-99) Laboratory Tests Test 12/07/19 11:50 12/07/19 16:48 12/07/19 20:49 12/08/19 07:22 Glucose (Fingerstick) 132 mg/dL (70-99) 144 mg/dL (70-99) 141 mg/dL (70-99) 137 mg/dL (70-99) Microbiology 12/04/19 Blood Culture - Preliminary, Resulted NO GROWTH AFTER 3 DAYS 12/04/19 Urine Culture - Final, Complete Medications Current Medications Sodium Chloride 1,000 ml @ 1,000 mls/hr 1X ONCE IV Last administered on 12/04/19at 19:37; Start 12/04/19 at 18:45; Stop 12/04/19 at 19:44; Status DC Lidocaine HCl (Glydo (Lidocaine) Jelly) 6 lupe [facility] ON[facility] .ROUTE ; Start 12/04/19 at 18:38; Stop 12/04/19 at 18:38; Status DC Ceftriaxone Sodium (Rocephin) 1 gm 1X ONCE IVP Last administered on 12/04/19at 19:38; Start 12/04/19 at 18:45; Stop 12/04/19 at 18:46; Status DC Ondansetron HCl (Zofran) 4 mg PRN Q8HRS PRN IV NAUSEA/VOMITING; Start 12/04/19 at 20:15; Stop 12/05/19 at 01:15; Status DC Ondansetron HCl (Zofran) 4 mg PRN Q8HRS PRN IV NAUSEA/VOMITING; Start 12/04/19 at 20:15; Stop 12/05/19 at 10:43; Status DC Ondansetron HCl (Zofran) 4 mg PRN Q4HRS PRN IV NAUSEA/VOMITING; Start 12/05/19 at 01:15 Insulin Human Lispro (HumaLOG) 0-7 UNITS TIDWMEALS SQ Last administered on 12/06/19 17:12; Start 12/05/19 at 08:00 Dextrose (Dextrose 50%-Water Syringe) 12.5 gm PRN Q15MIN PRN IV SEE COMMENTS; Start 12/05/19 at 01:15 Fluticasone Propionate (Flonase) 2 spray DAILY NS Last administered on 12/07/19 09:40; Start 12/05/19 at 09:00 Montelukast Sodium (Singulair) 10 mg HS PO Last administered on 12/07/19 19:58; Start 12/05/19 at 21:00 Fish Oil (Fish Oil) 1,000 mg DAILY PO Last administered on 12/07/19 09:40; Start 12/05/19 at 09:00 Simvastatin (Zocor) 10 mg QHS PO Last administered on 12/07/19 19:58; Start 12/05/19 at 21:00 Non-Formulary Medication (Fluticasone Propionate (Flovent 100MCG Diskus)) 1 puff BID IH ; Start 12/05/19 at 09:00; Status UNV Non-Formulary Medication (Ipratropium/ Albuterol Sulfate (Combivent Respimat Inhal)) 2 inh QID IH ; Start 12/05/19 at 09:00; Status UNV Heparin Sodium (Porcine) (Heparin Sodium) 5,000 unit Q8HRS SQ Last administered on 12/08/19at 06:39; Start 12/05/19 at 06:00 Tamsulosin HCl (Flomax) 0.4 mg 1X ONCE PO Last administered on 12/05/19 01:39; Start 12/05/19 at 01:30; Stop 12/05/19 at 01:31; Status DC Tamsulosin HCl (Flomax) 0.4 mg QHS PO Last administered on 12/07/19 19:58; Start 12/05/19 at 21:00 Guaifenesin (Robitussin Dm) 10 ml PRN Q6HRS PRN PO COUGH; Start 12/05/19 at 01:15 Acetaminophen (Tylenol) 650 mg PRN Q6HRS PRN PO MILD PAIN / TEMP > 100.3'F Last administered on 12/06/19at 09:54; Start 12/05/19 at 01:15 Docusate Sodium (Colace) 100 mg PRN DAILY PRN PO HARD STOOLS; Start 12/05/19 at 01:15 Polyethylene Glycol (miraLAX PACKET) 17 gm DAILY PO ; Start 12/05/19 at 09:00 Ceftriaxone Sodium (Rocephin) 1 gm Q24H IVP Last administered on 12/07/19at 19:20; Start 12/05/19 at 19:00 Albuterol/ Ipratropium (Duoneb) 3 ml RTQID NEB Last administered on 12/08/19at 07:31; Start 12/05/19 at 08:00 Budesonide (Pulmicort) 0.5 mg RTBID NEB Last administered on 12/08/19at 07:30; Start 12/05/19 at 08:00 Lactobacillus Rhamnosus (Culturelle) 1 cap BID PO Last administered on 12/07/19at 19:58; Start 12/05/19 at 21:00 Active Scripts Active Prednisone 20 Mg Tablet 60 Mg PO DAILY Lisinopril 40 Mg Tablet 40 Mg PO DAILY Levaquin (Levofloxacin) 500 Mg Tablet 500 Mg PO DAILY06 Reported Montelukast Sodium Tablet (Montelukast Sodium) 10 Mg Tablet 10 Mg PO HS Fish Oil 1,000 Mg Capsule ([address]-3 Fatty Acids/Fish Oil) 1 Each Capsule 1 Each PO DAILY Multi-Vitamin Daily (Multivitamin) 1 Each Tablet 1 Each PO Simvastatin 10 Mg Tablet 1 Tab PO QHS Metformin Hcl 500 Mg Tablet 1 Tab PO BID Flovent 100MCG Diskus (Fluticasone Propionate) 100 Mcg Disk.w.dev 1 Puff IH BID Combivent Respimat Inhal (Ipratropium/Albuterol Sulfate) 4 Gm Aer.w.adap 2 Inh IH QID Fluticasone Propionate Nasal [place] (Fluticasone Propionate) 16 Gm [place].susp 2 [place] NS DAILY Vitals/I & O Vital Sign - Last 24 Hours 12/07/19 12/07/19 12/07/19 12/07/19 10:55 10:56 11:35 11:36 Temp 97.4 97.4 Pulse 90 97 109 Resp 18 B/P (MAP) 144/62 (89) 154/73 (100) 147/74 (98) Pulse Ox 93 95 O2 Delivery Room Air Room Air 12/07/19 12/07/19 12/07/19 12/07/19 11:37 15:00 15:02 19:00 Temp 97.9 98.2 97.9 98.2 Pulse 115 104 89 Resp 20 20 B/P (MAP) 144/75 (98) 172/73 (106) 143/69 (93) Pulse Ox 97 97 O2 Delivery Room Air Room Air Room Air 12/07/19 12/07/19 12/07/19 12/07/19 19:15 20:28 20:29 23:00 Temp 98.4 98.4 Pulse 89 Resp 20 B/P (MAP) 146/61 (89) Pulse Ox 100 100 97 O2 Delivery Room Air Room Air Room Air Room Air 12/08/19 12/08/19 12/08/19 12/08/19 03:05 07:00 07:00 07:32 Temp 98.3 97.7 97.7 98.3 97.7 97.7 Pulse 81 81 81 Resp 20 17 17 B/P (MAP) 95/46 (62) 119/50 (73) 119/50 (73) Pulse Ox 95 94 94 96 O2 Delivery Room Air Room Air Room Air Room Air Intake and Output 12/07/19 12/07/19 12/08/19 15:00 23:00 07:00 Intake Total 240 ml Output Total 1850 ml 1400 ml Balance 240 ml -1850 ml -1400 ml Justicifation of Admission Dx: Justifications for Admission: Justification of Admission Dx: Yes (URINARY RETENTION, UTI) VALERY GARRIDO MD Dec 08, 2019 08:33
[2019-12-08] MEDS: LACTOBACILLUS RHAMNOSUS GG 1 CAPSULE. PO SCH (10:01)
[2019-12-08] MEDS: POLYETHYLENE GLYCOL 3350 17 GM PACKET. PO SCH (10:01)
[2019-12-08] MEDS: OMEGA-3 FATTY ACIDS/FISH OIL 1,000 MG CAPSULE. PO SCH (10:01)
[2019-12-08] MEDS: FLUTICASONE 50MCG/NASAL SPRAY 16GM BOTTLE. NS SCH (10:02)
[2019-12-08 10:44] VITALS: BP 108/55
--- NOTE | 2019-12-08 11:12 | PDOC3 ---
Discharge Summary Date of Admission: Dec 04, 2019 Date of Discharge: Dec 08, 2019 Follow-Up: 1-2 days, 3-5 days Admitting Diagnosis comment: discharge dx Urinary retention Assessment and Plan Assessmemt and Plan Problems Medical Problems: (1) Head injury Status: Acute (2) Urinary retention Status: Acute (3) UTI (urinary tract infection) Status: Acute Assessment: 1) Urinary retention due to neurogenic bladder and prostate enlargement 2) Hx frequent falls 3) HTN 4) Hyperlipidemia 5) COPD Plan: [facility]. PT, OT. Continue Flomax. Continue home meds. Disposition: d/c to home health Sunday. Follow-up with urology. zohaib Comment Review of Relevant I have reviewed the following items jason (where applicable) has been applied. Justifications for Admission Justifications for Admission Other Justification History of Present Illness History of Present Illness 12/07 Patient seen and examined. Patient was sitting up in bed, wants to go home. Discussed with RN. Discussed with case management. d/c planning 28 min 12/08/2019 Patient evaluated at bedside. Urine culture growing gram-positive cocci. Continue antibiotics. Discussed with RN, wants home health History of Present Illness History of Present Illness Mr Castillo is a 84 year old male w/ PMHx HTN, HLD, Diabetes-Type II, COPD, melanoma, neurogenic bladder self caths 3x daily who presents via EMS with a chief complaint of unable to cath for urine since 2:00 in the morning on 12/04/2019. He has had some lower abdominal pain. Patient has been feeling weak over the last several days and had a fall last where he hit his head has bilateral hip tenderness as well. Patient also generalized weakness and a fever for EMS. He does note multiple falls over the past year, at least 4. Has a cough, notes it is a chronic cough from his COPD. No recent sick contacts or COVID 19 contacts. No recent travel. Labs with CBC and BMP with values within normal limits, lactate 1.5, troponin 0, procalcitonin negative. Glucose 142. EKG appears sinus tachycardia with a rate of 113 left anterior fascicular block, left axis deviation nonspecific ST changes normal intervals Casey catheter placed in ED with greater than 1000mL urine out, patient felt relief. UA with blood and leukocyte esterase positive. CT head, pelvic XR with no abnormalities. CXR with interstitial pattern concern for chronic ILD. Admitted for further treatment. Past Medical History Cardiovascular: HTN, Hyperlipidemia Pulmonary: COPD CENTRAL NERVOUS SYSTEM: Other GI: Other Heme/Onc: Cancer Hepatobiliary: No pertinent hx Psych: No pertinent hx Musculoskeletal: Osteoarthritis Rheumatologic: No pertinent hx Infectious disease: No pertinent hx Renal/: Other Endocrine: Diabetes Past Surgical History Past Surgical History: Tonsillectomy, Other Family History Family History: Cancer Social History Smoke: Quit ALCOHOL: none Drugs: None Vitals Vitals Vital Signs Date Time Temp Pulse Resp B/P (MAP) Pulse Ox O2 Delivery O2 Flow Rate FiO2 12/08/19 07:32 96 Room Air 12/08/19 07:00 97.7 81 17 119/50 (73) 97.7 Physical Exam General: Alert, Oriented X3, Cooperative, No acute distress Heart: Regular rate, Normal S1, No murmurs Lungs: Clear Abdomen: Normal bowel sounds, Soft, No tenderness, No hepatosplenomegaly, No masses Extremities: No clubbing, No cyanosis, No edema, Normal pulses, No tenderness/swelling Skin: No rashes, No breakdown, No significant lesion Labs LABS URINE CULTURE Final Final GREATER THAN 100,000 CFU/ML GRAM POSITIVE COCCI on 12/06/19 at 0827 FINAL ID= [BETA STREP GROUP B] Testing Performed by: [address] [id number] For Inquires, the Physician may contact the Microbiology department at [phone] BETA STREP GROUP B FINAL DIAGNOSIS Problems Medical Problems: (1) Head injury Status: Acute (2) Urinary retention Status: Acute (3) UTI (urinary tract infection) Status: Acute Brief Hospital Course Mr. Castillo is a 84 old [sex] who presented with [ urinary retention, uti] CONDITION AT DISCHARGE: Improved Discharge Medications Current Medications Sodium Chloride 1,000 ml @ 1,000 mls/hr 1X ONCE IV Last administered on 12/04/19at 19:37; Start 12/04/19 at 18:45; Stop 12/04/19 at 19:44; Status DC Lidocaine HCl (Glydo (Lidocaine) Jelly) 6 lupe STK-MED ONCE .ROUTE ; Start 12/04/19 at 18:38; Stop 12/04/19 at 18:38; Status DC Ceftriaxone Sodium (Rocephin) 1 gm 1X ONCE IVP Last administered on 12/04/19at 19:38; Start 12/04/19 at 18:45; Stop 12/04/19 at 18:46; Status DC Ondansetron HCl (Zofran) 4 mg PRN Q8HRS PRN IV NAUSEA/VOMITING; Start 12/04/19 at 20:15; Stop 12/05/19 at 01:15; Status DC Ondansetron HCl (Zofran) 4 mg PRN Q8HRS PRN IV NAUSEA/VOMITING; Start 12/04/19 at 20:15; Stop 12/05/19 at 10:43; Status DC Ondansetron HCl (Zofran) 4 mg PRN Q4HRS PRN IV NAUSEA/VOMITING; Start 12/05/19 at 01:15 Insulin Human Lispro (HumaLOG) 0-7 UNITS TIDWMEALS SQ Last administered on 12/06/19at 17:12; Start 12/05/19 at 08:00 Dextrose (Dextrose 50%-Water Syringe) 12.5 gm PRN Q15MIN PRN IV SEE COMMENTS; Start 12/05/19 at 01:15 Fluticasone Propionate (Flonase) 2 spray DAILY NS Last administered on 12/08/19at 10:02; Start 12/05/19 at 09:00 Montelukast Sodium (Singulair) 10 mg HS PO Last administered on 12/07/19at 19:58; Start 12/05/19 at 21:00 Fish Oil (Fish Oil) 1,000 mg DAILY PO Last administered on 12/08/19at 10:01; Start 12/05/19 at 09:00 Simvastatin (Zocor) 10 mg QHS PO Last administered on 12/07/19at 19:58; Start 12/05/19 at 21:00 Non-Formulary Medication (Fluticasone Propionate (Flovent 100MCG Diskus)) 1 puff BID IH ; Start 12/05/19 at 09:00; Status UNV Non-Formulary Medication (Ipratropium/ Albuterol Sulfate (Combivent Respimat Inhal)) 2 inh QID IH ; Start 12/05/19 at 09:00; Status UNV Heparin Sodium (Porcine) (Heparin Sodium) 5,000 unit Q8HRS SQ Last administered on 12/08/19at 06:39; Start 12/05/19 at 06:00 Tamsulosin HCl (Flomax) 0.4 mg 1X ONCE PO Last administered on 12/05/19at 01:39; Start 12/05/19 at 01:30; Stop 12/05/19 at 01:31; Status DC Tamsulosin HCl (Flomax) 0.4 mg QHS PO Last administered on 12/07/19at 19:58; Start 12/05/19 at 21:00 Guaifenesin (Robitussin Dm) 10 ml PRN Q6HRS PRN PO COUGH; Start 12/05/19 at 01:15 Acetaminophen (Tylenol) 650 mg PRN Q6HRS PRN PO MILD PAIN / TEMP > 100.3'F Last administered on 12/06/19at 09:54; Start 12/05/19 at 01:15 Docusate Sodium (Colace) 100 mg PRN DAILY PRN PO HARD STOOLS; Start 12/05/19 at 01:15 Polyethylene Glycol (miraLAX PACKET) 17 gm DAILY PO Last administered on 12/08/19at 10:01; Start 12/05/19 at 09:00 Ceftriaxone Sodium (Rocephin) 1 gm Q24H IVP Last administered on 12/07/19at 19:20; Start 12/05/19 at 19:00 Albuterol/ Ipratropium (Duoneb) 3 ml RTQID NEB Last administered on 12/08/19at 07:31; Start 12/05/19 at 08:00 Budesonide (Pulmicort) 0.5 mg RTBID NEB Last administered on 12/08/19at 07:30; Start 12/05/19 at 08:00 Lactobacillus Rhamnosus (Culturelle) 1 cap BID PO Last administered on 12/08/19at 10:01; Start 12/05/19 at 21:00 Active Scripts Active Prednisone 20 Mg Tablet 60 Mg PO DAILY Lisinopril 40 Mg Tablet 40 Mg PO DAILY Levaquin (Levofloxacin) 500 Mg Tablet 500 Mg PO DAILY06 Reported Montelukast Sodium Tablet (Montelukast Sodium) 10 Mg Tablet 10 Mg PO HS Fish Oil 1,000 Mg Capsule ([place]-3 Fatty Acids/Fish Oil) 1 Each Capsule 1 Each PO DAILY Multi-Vitamin Daily (Multivitamin) 1 Each Tablet 1 Each PO Simvastatin 10 Mg Tablet 1 Tab PO QHS Metformin Hcl 500 Mg Tablet 1 Tab PO BID Flovent 100MCG Diskus (Fluticasone Propionate) 100 Mcg Disk.w.dev 1 Puff IH BID Combivent Respimat Inhal (Ipratropium/Albuterol Sulfate) 4 Gm Aer.w.adap 2 Inh IH QID Fluticasone Propionate Nasal [place] (Fluticasone Propionate) 16 Gm [place].susp 2 [place] NS DAILY Vital Signs Vital Signs Date Time Temp Pulse Resp B/P (MAP) Pulse Ox O2 Delivery O2 Flow Rate FiO2 12/08/19 10:44 97.7 86 17 108/55 (72) 96 Room Air 97.7 Labs Laboratory Tests Test 12/06/19 15:26 12/06/19 20:30 12/07/19 07:42 12/07/19 11:50 Glucose (Fingerstick) 207 mg/dL (70-99) 146 mg/dL (70-99) 153 mg/dL (70-99) 132 mg/dL (70-99) Test 12/07/19 16:48 12/07/19 20:49 12/08/19 07:22 12/08/19 10:53 Glucose (Fingerstick) 144 mg/dL (70-99) 141 mg/dL (70-99) 137 mg/dL (70-99) 156 mg/dL (70-99) Laboratory Tests Test 12/07/19 11:50 12/07/19 16:48 12/07/19 20:49 12/08/19 07:22 Glucose (Fingerstick) 132 mg/dL (70-99) 144 mg/dL (70-99) 141 mg/dL (70-99) 137 mg/dL (70-99) Test 12/08/19 10:53 Glucose (Fingerstick) 156 mg/dL (70-99) Allergies Allergies Coded Allergies Type Severity Reaction Last Updated Verified aspirin Allergy Intermediate 05/07/16 Yes Disposition/Orders: D/C to Home w/ HH Justicifation of Admission Dx: Justifications for Admission: Justification of Admission Dx: Yes (URINARY RETENTION, UTI) VALERY GARRIDO MD Dec 08, 2019 11:12
[2019-12-08] MEDS ORDERED: INSU100V35 SQ (11:15)
[2019-12-08] MEDS ORDERED: TAMS0.4C97 PO (11:15)
[2019-12-08] MEDS ORDERED: DOCU-153 PO (11:15)
[2019-12-08] MEDS ORDERED: ACET325T9 PO (11:15)
[2019-12-08] MEDS ORDERED: AMOX1TAB10 PO (11:15)
[2019-12-08] MEDS ORDERED: LACT1CAP19 PO (11:15)
--- NOTE | 2019-12-08 11:17 | SNU/HH DC ---
DISCHARGE WITH HOME HEALTH DISCHARGE INFORMATION: Final Diagnosis: Problems Medical Problems: (1) Head injury Status: Acute (2) Urinary retention Status: Acute (3) UTI (urinary tract infection) Status: Acute Condition on Discharge: Stable CODE STATUS: Code Status: Full HOME HEALTH: Face to Face: I certify this patient is under my care and that I, or a nurse practitioner or physician's hearing and speech assistant working with me, had a face to face encounter that meets the physician face to face encounter requirements with this patient on []. Medical Complications: DJD, Other (urine retention) RN For Eval/Treatment: Yes Physical Therapy For: Evalulation/Treatment Occupational Therapy For: Evaluation/Treatment Speech Language Pathology For: Evaluation/Treatment Home Health Aide For: Self-care TESTING TECH For: Community Resources Pt Meets Homebound Status: Unsteady balance w/ amb,, Fatigue w/ amb. POST DISCHARGE ORDERS: Activity Instructions for Disc: Activity as tolerated DIET AFTER DISCHARGE: Cardiac CHECKS AFTER DISCHARGE: Checks after discharge: Check blood press - daily FOLLOW-UP: PCP to follow Home Health: pcp this week Follow up with: UROLOGY THIS WEEK TREATMENT/EQUIPMENT ORDERS: Adaptive Equipment Issued: Front wheeled walker CERTIFICATION STATEMENT: Certification Statement: Certification Statement: Based on the above finding, I certify that this patient is confined to the home and needs intermittent detention care, physical therapy and/or speech therapy, or continues to need occupational therapy.~ This patient is under my care, and I have initiated the establishment of the plan of care.~ This patient will be followed by myself or a community physician who will periodically review the plan of care. Home Meds Active Scripts Insulin Lispro (Admelog) 100 Unit/1 Ml Vial, 0 UNITS SQ TIDWMEALS for diabetes for 30 Days, #2 EACH Prov:VALERY GARRIDO MD 12/08/19 Lactobacillus Rhamnosus Gg (CULTURELLE) 1 Each Cap.sprink, 1 CAP PO BID for supplement for 30 Days, #60 CAP Prov:VALERY GARRIDO MD 12/08/19 Docusate Sodium (DOK) 100 Mg Capsule, 100 MG PO PRN DAILY PRN for HARD STOOLS for 30 Days, #60 CAP Prov:VALERY GARRIDO MD 12/08/19 Acetaminophen (TYLENOL) 325 Mg Tablet, 650 MG PO PRN Q6HRS PRN for MILD PAIN / TEMP > 100.3'F for 30 Days, #60 TAB Prov:VALERY GARRIDO MD 12/08/19 Tamsulosin Hcl (FLOMAX) 0.4 Mg Cap.er.24h, 0.4 MG PO QHS for urine flow for 30 Days, #30 CAP.SR Prov:VALERY GARRIDO MD 12/08/19 Amoxicillin/Potassium Clav (AMOX TR-K CLV 500-125 MG TAB) 1 Each Tablet, 1 TAB PO BID for uti for 10 Days, #20 TAB Prov:VALERY GARRIDO MD 12/08/19 Reported Medications Montelukast Sodium (MONTELUKAST SODIUM TABLET ) 10 Mg Tablet, 10 MG PO HS for FOR ASTHMA, #30 TAB 0 Refills 05/09/16 [place]-3 Fatty Acids/Fish Oil (FISH OIL 1,000 MG CAPSULE) 1 Each Capsule, 1 EACH PO DAILY 05/07/16 Multivitamin (MULTI-VITAMIN DAILY) 1 Each Tablet, 1 EACH PO 05/07/16 Simvastatin (SIMVASTATIN) 10 Mg Tablet, 1 TAB PO QHS, #30 TAB 5 Refills 05/07/16 Fluticasone Propionate (FLOVENT 100MCG DISKUS) 100 Mcg Disk.w.dev, 1 PUFF IH BID, #1 INHALER 5 Refills 05/07/16 Ipratropium/Albuterol Sulfate (COMBIVENT RESPIMAT INHAL) 4 Gm Aer.w.adap, 2 INH IH QID, INHALER 05/07/16 Fluticasone Propionate (FLUTICASONE PROPIONATE NASAL SPRAY) 16 Gm [place].susp, 2 SPRAY NS DAILY, #1 INHALER 11 Refills 05/07/16 Discontinued Reported Medications Metformin Hcl (METFORMIN HCL) 500 Mg Tablet, 1 TAB PO BID, #60 TAB 3 Refills 05/07/16 Discontinued Scripts Prednisone (PREDNISONE) 20 Mg Tablet, 60 MG PO DAILY, #12 TAB Prov:SONAL WHITE MD 05/10/16 Lisinopril (LISINOPRIL) 40 Mg Tablet, 40 MG PO DAILY, #30 TAB Prov:SONAL WHITE MD 05/10/16 Levofloxacin (LEVAQUIN) 500 Mg Tablet, 500 MG PO DAILY06, #4 TAB Prov:SONAL WHITE MD 05/10/16 VALERY GARRIDO MD Dec 08, 2019 11:17
--- NOTE | 2019-12-08 12:53 | NUR ---
SW following. Spoke with RN and reviewed chart. Pt remains on room air and will discharge home today on oral medications with [facility] per Dr. Chavis. PT recommendation is for SNU. Spoke with pt again today. Pt continues to decline SNU but remains agreeable to HH. Phoned and faxed discharge orders to Kirstin with [facility]. No further SW needs at this time.
[2019-12-08 14:54] VITALS: BP 151/64
--- NOTE | 2019-12-08 15:00 | NUR ---
DISCHARGE INSTRUCTIONS GIVEN TO PATIENT AND HIS SON INCLUDING HOW TO CARE FOR AND EMPTY [employer] BAG, [facility] HEALTH AND SAFETY INSPECTOR HER AND GAVE THE PATIENT INSTRUCTIONS BEFORE LEAVING THE HOSPITAL, ALL PERSONAL BELONGINGS GATHERED BY THE PATIENTS SON AND PLACED IN BAGS FOR DISCHARGE.
--- NOTE | 2019-12-08 15:20 | NUR ---
PATIENT LEAVES THE UNIT PER W/C AND ALONGSIDE HIS SON AND SUEDING MACHINE OPERATOR, EMOTIONAL SUPPORT GIVEN, FOLLOW UP APPOINTMENTS ENCOURAGED.
[2019-12-08] MEDS ORDERED: AMOXICILLIN/K CLAV 500/125MG TABLET. PO SCH (21:00)
== END 2019-12-08 15:20 | disposition home health service (06) | DRG 872 ==
LOC: ER 18:18 → 5 NORTH 20:11
PROVIDERS: ADMIT Internal Medicine; ATTEND Internal Medicine
DX: A41.9 Sepsis, unspecified organism (principal); N39.0 Urinary tract infection, site not specified; N31.9 Neuromuscular dysfunction of bladder, unspecified; N40.0 Benign prostatic hyperplasia without lower urinary tract symptoms; E11.9 Type 2 diabetes mellitus without complications; E78.5 Hyperlipidemia, unspecified; I10 Essential (primary) hypertension; I44.4 Left anterior fascicular block; J43.9 Emphysema, unspecified; M85.80 Other specified disorders of bone density and structure, unspecified site; Z87.891 Personal history of nicotine dependence; R29.6 Repeated falls; W18.39XA Other fall on same level, initial encounter; R33.8 Other retention of urine; Z20.828 Contact with and (suspected) exposure to other viral communicable diseases; S09.90XA Unspecified injury of head, initial encounter; Z85.820 Personal history of malignant melanoma of skin; M19.90 Unspecified osteoarthritis, unspecified site; Z88.8 Allergy status to other drugs, medicaments and biological substances; Y93.89 Activity, other specified; Y92.89 Other specified places as the place of occurrence of the external cause; Y99.8 Other external cause status
CPT/HCPCS: 36415; 70450; 71045; 72170; 80053; 81001; 82962; 83605; 83690; 84145; 84484; 85007; 85025; 85610; 85730; 87040; 87077; 87086; 93005; 94640; 94760; J0696; J1644; J1815; J7030; 97110-GP; 97116-GP; 97530-GP; 97535-GO; G0378; J7626